=== PATIENT | female | born 2000 | race Caucasian/White ===

== ENCOUNTER 2025-08-26 20:26 | Inpatient (IN) | payer BC, MEDICAID, SELFPAY ==
[2025-08-26 20:28] VITALS: BMI 31.6
--- NOTE | 2025-08-26 20:31 | EKG_ITS ---
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
[2025-08-26 21:09] VITALS: BP 108/75; PULSE 54; RESP 17; TEMP 37.1; O2SAT 100
--- NOTE | 2025-08-26 21:39 | XR_ITS ---
Examination: PA chest single view Technique: Upright PA chest single view Date and time: August 26, 2025 2155 hrs. Indications: Chest pain shortness of breath beginning 10. Findings: Normal heart size. Lungs are clear. The osseous structures are intact. Impression: No active disease.
--- NOTE | 2025-08-26 21:56 | PD.EDCHEST ---
ED Chest Pain RME/HPI General Chief Complaint: Chest Pain Stated Complaint: CHEST THIGHTNESS AND HURTS TO BREATH Time Seen by Provider: 08/26/25 21:33 Arrival date/time: 08/26/25 20:26 25F with history of anxiety presents to ED with 1 month of intermittent episodes of CP and SOB. Patient denies URI symptoms and drug/alcohol use. Limitations: no limitations Related Data Previous Rx's ?Medication ?Instructions ?Recorded levothyroxine 125 mcg tablet 125 mcg PO ACBR 1 month #30 tabs 08/30/25 Allergies Allergy/AdvReac Type Severity Reaction Status Date / Time amoxicillin Allergy Severe RASH Verified 08/26/25 20:27 clavulanic acid Allergy Severe RASH Verified 08/26/25 20:27 Review of Systems Review of Systems Systems Reviewed: All systems reviewed, normal except as documented Cardiovascular Cardiovascular: Reports as per HPI, Reports chest pain and Reports dyspnea Respiratory Respiratory: Reports dyspnea Past Medical History Social History SMOKING STATUS: Never smoker ED Exam General Limitations: Present no limitations General appearance: Present alert, in no apparent distress and anxious Head Head exam: Present atraumatic Neck Neck exam: Present normal inspection, full ROM and trachea midline Chest Chest inspection: Present normal inspection and symmetric chest wall rise Respiratory Respiratory exam: Present normal lung sounds bilaterally Cardiovascular Cardiovascular exam: Present regular rate, bradycardia and normal heart sounds Neurological Exam Neurological exam: Present alert and oriented X3 Psychiatric Psychiatric exam: Present normal affect and anxious Skin Skin exam: Present warm, dry, intact and normal color Course Quality Measures none Orders Category Date Time Status CT Screening NOW Care 08/27/25 04:05 Completed EKG (ED ONLY) *Do not use* NOW Care 08/26/25 20:31 Completed Insert IV NOW Care 08/27/25 00:47 Completed MRI Screening NOW Care 08/27/25 07:05 Completed Consult to Gastroenterology Stat Cons 08/27/25 09:11 Ordered Consult to General Surgery Routine Cons 08/27/25 10:[address] abdomen pelvis w con Stat Exams 08/27/25 04:05 Completed EKG (ED Only) Stat Exams 08/26/25 20:31 Draft MR MRCP Stat Exams 08/27/25 Completed US gall bladder Stat Exams 08/26/25 23:14 Completed US pelvic complete Stat Exams 08/27/25 07:06 Completed XR chest 1V portable Stat Exams 08/26/25 21:39 Completed LYNN IFA Screen w/refl, IFA* Stat Lab 08/27/25 09:25 Received Acetaminophen Stat Lab 08/26/25 22:17 Completed Alcohol, Blood Medical Stat Lab 08/26/25 22:17 Completed Alcohol, Blood Medical Stat Lab 08/27/25 06:15 Completed B-Type Natriuretic Peptide Stat Lab 08/26/25 22:17 Completed Blood Culture (Lab) Stat Lab 08/27/25 09:19 Results CBC Stat Lab 08/26/25 22:17 Completed Comprehensive Metabolic Panel Stat Lab 08/26/25 22:17 Completed Comprehensive Metabolic Panel Stat Lab 08/27/25 01:15 Completed D-Dimer Stat Lab 08/26/25 22:17 Completed Drug Screen,Urine Stat Lab 08/26/25 23:17 Completed Free T3 Stat Lab 08/27/25 06:15 Completed Free T4 (Free Thyroxine) Stat Lab 08/26/25 22:17 Completed HCG Qualitative,Urine Stat Lab 08/26/25 23:17 Completed Hepatitis Acute Panel Stat Lab 08/26/25 22:17 Completed INR [Prothrombin Time with INR] Stat Lab 08/27/25 09:25 Completed Lipase Stat Lab 08/26/25 22:17 Completed Liver Panel Stat Lab 08/27/25 06:15 Completed Lupus Anticoag Eval w Reflex* Stat Lab 08/27/25 09:25 Received Magnesium Stat Lab 08/26/25 22:17 Completed [place] Screen Stat Lab 08/27/25 06:15 Completed Salicylate Stat Lab 08/27/25 06:15 Completed Thyroid Stimulating Hormone Stat Lab 08/26/25 22:17 Completed Troponin I Stat Lab 08/26/25 22:17 Completed Troponin I Stat Lab 08/27/25 01:15 Completed Urinalysis, C/S if Indicated Stat Lab 08/26/25 23:17 Completed Diazepam [Valium] Med 08/26/25 21:39 Discontinued 5 mg PO X1 ONE Levothyroxine Sodium [Synthroid] Med 08/27/25 08:01 Discontinued 25 mcg PO X1 ONE Piper/Tazo Inj [Zosyn Inj] 4.5 gm Med 08/27/25 08:37 Discontinued Sodium Chloride 0.9% (Pop) [NS 0.9% mini bag] 100 ml IV STAT Sodium Chloride 0.9% 1000 ml [Ns] 1,000 ml Med 08/27/25 00:47 Discontinued IV 999 mls/hr Vital Signs Vital signs: Vital Signs Temperature 98.7 F 08/26/25 21:09 Pulse Rate 54 L 08/26/25 21:09 Respiratory Rate 17 08/26/25 21:09 Blood Pressure 108/75 08/26/25 21:09 Pulse Oximetry (%) 100 08/26/25 21:09 Oxygen Delivery Method Room Air 08/26/25 21:09 O2 at 100% on RA and WNLs Chest Pain MDM Narrative MDM Narrative:: 25F with history of anxiety presents to ED with 1 month of intermittent episodes of CP and SOB. Patient denies URI symptoms and drug/alcohol use. Physical exam reveals clear ENT and lungs. No ab tenderness. Patient is afebrile, alert, but anxious. EKG is sinus duc of 53. CXR unremarkable. No leukocytosis. Trop, BNP, and D-dimer normal. CMP remarkable for Cr of 1.4 and moderately elevated LFTs. UA contaminated. Tox and HCG neg. Bili normal. Hep panel neg. Alcohol and tylenol levels normal. Telerad US gallbladder possible mild gallbladder wall thickening, but no stones. Valium improved symptoms. No pain meds given. TSH very high, T4 low. After 1L bolus, Cr reduced to WNLs. However, LFTs increased dramatically. Patient confirmed she did not take any Tylenol. CT telerad possible cholecystitis/pancreatitis. Small FF in pelvis. Patient confirms she's not on her cycle, has no discharge, and is not concerned about STDs. Care signed out to Dr. Adair pending repeat lab draws and dispo. Patient eventually admitted. Patient data External records reviewed:: [facility] previous records Clinical information provided by:: patient Social determinants that could affect healthcare access:: mental health Patient has the following chronic illnesses:: anxiety How is presenting disease/condition affected by chronic disease/condition?: exacerbated by Evaluation data The following diagnostics were reviewed and interpreted by me:: lab results, radiology exam(s) and EKG tracing(s) Lab and/or radiology exams considered but not ordered:: ordered Interpretation Summary: above Medications / Prescriptions Medications or Prescriptions considered but not ordered:: ordered Medication administrations:: Medication Administration History Al Hydrox/Mg Hydrox/Simethicone (Mg Hyd/Al Hyd/Linsey (Maalox Reg) Susp 30 Ml Udc) 30 ml PO Q6H PRN PRN Reason: Indigestion Stop: 09/26/25 10:25 Levothyroxine Sodium 100 mcg/ (Sodium Chloride 5 ml) 0 mcg IV X1 ONE Stop: 08/30/25 20:01 Ibuprofen (Ibuprofen Tab 400 Mg Tablet) 400 mg PO Q6HR PRN PRN Reason: Mild pain 1-6 or Fever>100.4 Stop: 09/27/25 23:08 Last Admin: 08/29/25 20:35 Dose: 400 mg Documented By: Admin: 08/28/25 23:20 Dose: 400 mg Documented By: NOY Levothyroxine Sodium (Levothyroxine Sodium 125 Mcg Tablet) 125 mcg PO ACBR [facility] Stop: 09/26/25 13:29 Last Admin: 08/30/25 05:51 Dose: 125 mcg Documented By: Admin: 08/29/25 05:21 Dose: 125 mcg Documented By: Admin: 08/28/25 05:39 Dose: 125 mcg Documented By: Admin: 08/27/25 13:37 Dose: 125 mcg Documented By: JUDI Ondansetron HCl (Ondansetron Inj 2 Mg/Ml Inj 2 Ml) 4 mg IVP Q6H PRN; Protocol PRN Reason: NAUSEA OR VOMITING Stop: 09/26/25 10:25 Pantoprazole Sodium (Pantoprazole 40 Mg Tablet) 40 mg PO QDAY [facility] Stop: 09/28/25 08:59 Last Admin: 08/30/25 08:09 Dose: 40 mg Documented By: Admin: 08/29/25 10:41 Dose: 40 mg Documented By: JAE Discontinued Medications Acetaminophen (Acetaminophen 325 Mg Tablet) 650 mg PO Q6H PRN PRN Reason: Fever >101.5 Stop: 09/26/25 10:25 Acetaminophen (Acetaminophen Supp 650 Mg Supp) 650 mg PA Q6H PRN; Protocol PRN Reason: Pain 1-3(Mild) or Fever >101.4 Stop: 09/26/25 10:25 Acetaminophen (Acetaminophen 325 Mg Tablet) 650 mg PO Q6HR PRN PRN Reason: pain or fever >100.4 Stop: 09/27/25 23:04 Levothyroxine Sodium 100 mcg/ (Sodium Chloride 5 ml) 0 mcg IV X1 ONE Stop: 08/30/25 15:55 Last Admin: 08/30/25 16:29 Dose: 100 syringe Documented By: TILA Comments: mcg Diazepam (Diazepam 5 Mg Tablet) 5 mg PO X1 ONE Stop: 08/26/25 21:40 Last Admin: 08/26/25 22:04 Dose: 5 mg Documented By: MARLEE Famotidine (Famotidine 20 Mg Tablet) 20 mg PO X1 ONE Stop: 08/28/25 13:20 Last Admin: 08/28/25 14:19 Dose: 20 mg Documented By: Sodium Chloride (Ns) 1,000 mls @ 999 mls/hr IV .Q1H1M ONE Stop: 08/27/25 01:47 Last Infusion: 08/27/25 02:33 Dose: Infused Documented By: Admin: 08/27/25 01:15 Dose: 999 mls/hr Documented By: ANGELIKA Piperacillin Sod/Tazobactam (Sod 4.5 gm/ Sodium Chloride) 100 mls @ 200 mls/hr IV STAT STA; Protocol Stop: 08/27/25 09:06 Last Infusion: 08/27/25 10:06 Dose: Infused Documented By: Admin: 08/27/25 09:12 Dose: 200 mls/hr Documented By: BY Lactated Ringer's (Lactated Ringers) 1,000 mls @ 75 mls/hr IV .[id number] ONE Stop: 08/28/25 01:18 Last Infusion: 08/27/25 13:38 Dose: 75 mls/hr Documented By: Admin: 08/27/25 13:13 Dose: 75 mls/hr Documented By: JUDI Lactated Ringer's (Lactated Ringers) 1,000 mls @ 150 mls/hr IV .Q6H40M ONE Stop: 08/27/25 18:38 Last Admin: 08/27/25 13:39 Dose: 150 mls/hr Documented By: JUDI Lactated Ringer's (Lactated Ringers) 1,000 mls @ 150 mls/hr IV .Q6H40M LUIZ Stop: 08/28/25 04:32 Last Infusion: 08/28/25 02:52 Dose: Infused Documented By: Admin: 08/27/25 20:11 Dose: 150 mls/hr Documented By: Admin: 08/27/25 19:50 Dose: Not Given Documented By: Non-Admin Reason: 1st bag started in ER Lactated Ringer's (Lactated Ringers) 1,000 mls @ 150 mls/hr IV .Q6H40M LUIZ Stop: 09/27/25 02:46 Last Admin: 08/28/25 02:57 Dose: 150 mls/hr Documented By: ME Lactated Ringer's (Lactated Ringers) 1,000 mls @ 100 mls/hr IV .Q10H LUIZ Stop: 09/27/25 08:36 Last Admin: 08/29/25 20:28 Dose: 100 mls/hr Documented By: Infusion: 08/29/25 06:49 Dose: Infused Documented By: Admin: 08/28/25 20:49 Dose: 100 mls/hr Documented By: Infusion: 08/28/25 18:45 Dose: Infused Documented By: Admin: 08/28/25 08:45 Dose: 100 mls/hr Documented By: LT Magnesium Sulfate (Magnesium Sulfate Ivpb) 4 gm in 50 mls @ 12.5 mls/hr IV X1 ONE Stop: 08/29/25 12:07 Last Admin: 08/29/25 10:42 Dose: 12.5 mls/hr Documented By: VD Lactated Ringer's (Lactated Ringers) 1,000 mls @ 125 mls/hr IV .Q8H ONE Stop: 08/29/25 16:39 Last Admin: 08/29/25 08:44 Dose: Not Given Documented By: TD Non-Admin Reason: Discontinued Sterile Water (Sterile Water) Confirm Administered Dose 10 mls @ ud .ROUTE .STK-MED ONE Stop: 08/29/25 14:00 Last Admin: 08/29/25 18:27 Dose: Not Given Documented By: TD Non-Admin Reason: pyxis charge Lactated Ringer's (Lactated Ringers) 1,000 mls @ 500 mls/hr IV .Q2H ONE Stop: 08/30/25 09:43 Last Admin: 08/30/25 08:09 Dose: 500 mls/hr Documented By: LH Ibuprofen (Ibuprofen Tab 400 Mg Tablet) 400 mg PO X1 ONE Stop: 08/28/25 07:53 Last Admin: 08/28/25 08:45 Dose: 400 mg Documented By: LT Levothyroxine Sodium (Levothyroxine Sodium 25 Mcg Tablet) 25 mcg PO X1 ONE Stop: 08/27/25 08:02 Last Admin: 08/27/25 08:39 Dose: 25 mcg Documented By: BY Levothyroxine Sodium (Levothyroxine Sodium 25 Mcg Tablet) 25 mcg PO ACBR LUIZ Stop: 09/27/25 05:59 Morphine Sulfate (Morphine Sulf Inj 4 Mg/Ml Vial) 0.5 mg IVP X1 ONE Stop: 08/27/25 14:17 Last Admin: 08/27/25 14:16 Dose: Not Given Documented By: JUDI Non-Admin Reason: Patient Refused Oxycodone/Acetaminophen (Oxycodone/Apap 5/325 Tablet) 1 tab PO Q6H PRN PRN Reason: PAIN SCALE 4-6 (Moderate Stop: 09/01/25 10:25 above Consultations Consultation(s) initiated? (list below): Yes Diagnosis Chest Pain Differential Diagnosis: fracture of rib, pneumothorax, stable angina, unstable angina pectoris, atypical chest pain, st elevation myocardial infarction, costochondritis, chest pain, biliary colic and other (anxiety, bradycardia, cr elevation, liver enzyme elevation, primary hypothyroidism, acute liver failure) Most likely diagnosis given after review of the tests above:: hypothyroidism, bradycardia, atypical chest pain Admission Indicated Admission indicated?: indicated Admission Request Was there a request for admission?: Yes Admission Attestation Admission request attestation: Discussed case with [] from Hospitalist service regarding admission. Discussed patients ED course, exam findings, labs, and radiology results. The Hospitalist [agrees,declines] to accept the patient for admission. See addendum Disposition Plan Disposition Plan: Admit Discharge Plan Plan Patient Disposition: Admit Acute Care w/in Hospital Problem List Clinical Impression: Hypothyroidism
[2025-08-26] MEDS: DIAZEPAM 5 MG TABLET PO (22:04)
[2025-08-26 22:31] LABS: Basophils # (Auto) 0.0 Thou/mm3 (0.0-0.2); Basophils % (Auto) 1 % (0-2.5); Eosinophils # (Auto) 0.1 Thou/mm3 (0.0-0.5); Eosinophils % (Auto) 1 % (0-10); Hematocrit 31.4 % (36.0-46.0); Hemoglobin 10.7 g/dL (12.0-16.0); Immature Granulocytes Auto 0.03 Thou/mm3 (0.00-0.00); Lymphocytes # (Auto) 1.3 Thou/mm3 (1.0-4.8); Lymphocytes % (Auto) 17 % (10-50); Mean Corpuscular HGB Conc 34.1 g/dl (31.0-37.0); Mean Corpuscular Hemoglobin 31.8 pg (25.0-35.0); Mean Corpuscular Volume 93 fL (80-100); Monocytes # (Auto) 0.3 Thou/mm3 (0.0-0.8); Monocytes % (Auto) 4 % (0-12); Neutrophils # (Auto) 6.2 Thou/mm3 (1.8-7.7); Neutrophils % (Auto) 78 % (37-80); Nucleated Red Blood Cell # 0.00 Thou/mm3 (0.00-0.00); Nucleated Red Blood Cell % 0 /100 WBC (0); Platelet Count 259 Thou/mm3 (140-440); RDW Standard Deviation 43.8 fL (36.4-46.3); Red Blood Count 3.37 Miln/mm3 (4.00-5.20); White Blood Count 8.0 Thou/mm3 (3.6-11.0)
[2025-08-26 22:48] LABS: B-Type Natriuretic Peptide < 20 pg/mL (0-100)
[2025-08-26 22:51] LABS: D-Dimer < 250 ng/mL (<600)
[2025-08-26 22:59] LABS: Alanine Aminotransferase 366 U/L (10-49); Albumin, Serum 4.7 gm/dL (3.5-5.0); Albumin/Globulin Ratio 1.6 (1.2-2.2); Alkaline Phosphatase 74 U/L (46-116); Anion Gap 9 (7-16); Aspartate Amino Transferase 491 U/L (0-34); BUN/Creatinine Ratio 9 Ratio (12-20); Bilirubin,Total 0.8 mg/dL (0.3-1.2); Blood Urea Nitrogen 12 mg/dL (9-23); Calcium 9.5 mg/dL (8.3-10.6); Calcium (Corrected) 9.5 mg/dL (8.5-10.1); Carbon Dioxide 30.1 mMol/L (20.0-31.0); Chloride 102 mMol/L (98-107); Creatinine (Component) 1.4 mg/dL (0.6-1.3); Estimated Creatinine Clearance 66.6 mL/min (>60); Globulin 2.9 gm/dL (2.3-3.5); Glucose 111 mg/dL (74-106); Magnesium 2.2 mg/dL (1.6-2.6); Osmolality,Calculated 281 (275-295); Potassium 4.1 mMol/L (3.4-5.1); Sodium 141 mMol/L (136-145); Total Protein 7.6 gm/dL (5.7-8.2); Troponin I < 0.002 ng/mL (0.0-0.045); eGFR 54 See Note
--- NOTE | 2025-08-26 23:14 | XR_ITS ---
Examination: Abdomen sonogram, Limited Date and time of exam: August 26, 2025, 11:48 PM Indications: Epigastric pain beginning 1900 hrs. Today Technique: Real-time de la cruz scale transabdominal sonographic images of the upper abdomen obtained. Findings: Negative for gallstones Gallbladder wall 0.3 cm Common bile duct 0.3 cm Pancreatic head 3.2 cm Liver 14.2 cm smooth contour no focal liver lesions Normal hepatopedal portal venous flow Patent IVC Impression: Negative for cholelithiasis No gallbladder wall edema Normal common bile
[2025-08-26 23:21] LABS: Collection Type, Urine Clean Catch
[2025-08-26 23:34] LABS: HCG Qualitative,Urine Negative
[2025-08-26 23:38] LABS: Amorphous Crystals,Urine Present (Absent); Bacteria,Urine Rare; Bilirubin,Urine Negative (Negative); Blood,Urine Negative (Negative); Budding Yeast,Urine Present; Color,Urine Yellow (Lt Yel-Yel); Culture Indicated,Urine Contaminated; Glucose, Urine Negative (Negative); Ketones,Urine Negative (Negative); Leukocyte Esterase,Urine Positive (Negative); Nitrite,Urine Negative (Negative); PH,Urine 6.5 (5.0-7.0); Protein,Urine 1+ (Neg - Trace); RBC,Urine 23 /hpf (0-3); Specific Gravity,Urine 1.028 (1.001-1.035); Squamous Epithelial Cell,Urine 22 /hpf (0-5); Urobilinogen,Urine Negative mg/dL (0.0-1.0); WBC,Urine 36 /hpf (0-5)
[2025-08-26 23:39] LABS: Clarity,Urine Turbid (Clear/Hazy)
[2025-08-26 23:45] LABS: Amphetamine/Methamp Scrn,U Negative (Negative); Barbiturate Screen,Urine Negative (Negative); Benzodiazepines Screen,Urine Negative (Negative); Benzoylecgonine Screen, Ur Negative (Negative); Fentanyl Screen,Urine Negative (Negative); Opiate Screen,Urine Negative (Negative); THC Screen,Urine Negative (Negative)
[2025-08-26 23:47] LABS: Thyroid Stimulating Hormone > 150.00 uIU/mL (0.55-4.78)
[2025-08-26 23:54] LABS: Alcohol, Blood Medical < 3.0 mg/dL (0-10.0); Lipase 23 U/L (12-53)
[2025-08-27] VITALS (7 sets, daily range): BP systolic 108–118; BP diastolic 69–81; PULSE 58–82; RESP 16–18; TEMP 36.2–36.9; O2SAT 95–100; BMI 31.6
--- NOTE | 2025-08-27 | XR_ITS ---
MRI abdomen, without contrast. MRCP Date and time of exam: August 27, 2025, 0753 hrs. Indications: Epigastric pain one month Technique: Multiple axial and coronal images of the abdomen have been obtained with the Siemens 1.5T MRI scanner. Images obtained included T1 weighted transverse images, T2-weighted transverse images, T2-weighted transverse images fat-suppressed, T2 weighted haste fat suppressed transverse images, T1 weighted images, in and out of phase images, T2-weighted coronal images, breath hold, T2 weighted haze coronal images as well as T2 weighted coronal thick slab images, MRCP. Findings: No focal liver lesions The gallbladder is contracted with sludge versus small stones There is definite gallbladder wall thickening and edema, the gallbladder is contracted Common hepatic common bile duct 2 mm no stones There is edema surrounding the pancreas, no pancreatic pseudocyst Spleen is not enlarged No hydronephrosis Aorta normal size Impression: Acute cholecystitis Acute pancreatitis, no pseudocyst
[2025-08-27 00:32] LABS: Free T4 (Free Thyroxine) < 0.10 ng/dL (0.89-1.76)
[2025-08-27 00:56] LABS: Acetaminophen < 2.0 mcg/mL (10.0-20.0)
--- NOTE | 2025-08-27 01:07 | PRELIM_ITS ---
Right upper quadrant abdominal ultrasound with Limited Doppler. August 26, 2025 at 2348 hours Clinical history: Elevated LFTs. No prior study is available for comparison. Findings: The liver is normal in echogenicity. No intrahepatic biliary ductal dilatation. The main portal vein is patent and demonstrates hepatopetal flow. There is borderline gallbladder wall thickening, measuring 3.4 mm. No gallbladder calculus or pericholecystic fluid is demonstrated. The common bile duct is normal in caliber at 3 mm. The pancreas is unremarkable to the extent visualized. The inferior vena cava is unremarkable to the extent visualized. The abdominal aorta is not imaged/not demonstrated. Impression: Borderline gallbladder wall thickening without evidence of gallstones or pericholecystic fluid. In the appropriate clinical setting, acute acalculous cholecystitis cannot be excluded. Recommend clinical correlation and follow-up. Report Electronically Signed By: Mauro Seaman 08/27/2025 1:07:31 AM [EST]
[2025-08-27 01:12] LABS: Hepatitis A Antibody IgM Non Reactive (Non React); Hepatitis B Core Antibody IgM Non Reactive (Non React); Hepatitis B Surface Antigen Non Reactive (Non React); Hepatitis C Antibody Non Reactive (Non React)
[2025-08-27] MEDS: SODIUM CHLORIDE 0.9% 1000 ML 1,000 ML 999 ML IV (01:15)
[2025-08-27 01:45] LABS: Troponin I < 0.002 ng/mL (0.0-0.045)
[2025-08-27 03:14] LABS: Albumin, Serum 4.9 gm/dL (3.5-5.0); Albumin/Globulin Ratio 1.6 (1.2-2.2); Anion Gap 9 (7-16); BUN/Creatinine Ratio 12 Ratio (12-20); Bilirubin,Total 0.9 mg/dL (0.3-1.2); Blood Urea Nitrogen 15 mg/dL (9-23); Calcium 9.5 mg/dL (8.3-10.6); Calcium (Corrected) 9.5 mg/dL (8.5-10.1); Carbon Dioxide 28.8 mMol/L (20.0-31.0); Chloride 102 mMol/L (98-107); Creatinine (Component) 1.3 mg/dL (0.6-1.3); Estimated Creatinine Clearance 71.7 mL/min (>60); Globulin 3.0 gm/dL (2.3-3.5); Glucose 116 mg/dL (74-106); Osmolality,Calculated 281 (275-295); Potassium 4.0 mMol/L (3.4-5.1); Sodium 140 mMol/L (136-145); Total Protein 7.9 gm/dL (5.7-8.2); eGFR 59 See Note
[2025-08-27 03:33] LABS: Alkaline Phosphatase 102 U/L (46-116)
[2025-08-27 03:56] LABS: Aspartate Amino Transferase > 1000 U/L (0-34)
[2025-08-27 03:58] LABS: Alanine Aminotransferase 1754 U/L (10-49)
--- NOTE | 2025-08-27 04:05 | XR_ITS ---
Examination: CT abdomen with intravenous contrast CT pelvis with intravenous contrast 2-D coronal reconstructions 2-D sagittal reconstructions Date and time of exam:August 27, 2025, 0425 hrs. Indications: Abdominal pain with elevated liver function tests on laboratory examination today. CTDI: vol (mGy) 8.54 DLP: (mGycm) 514 Technique: Multiple axial sections of the abdomen and pelvis have been obtained. 64 slice high-resolution scanner used. 3 mm axial sections have been obtained, post intravenous injection 60 cc [id number] 2-D sagittal, coronal reconstructions obtained. Low dose protocols were performed. One or more of the following dose reduction techniques were used; automated exposure control, adjustment of the mA and/or KV according to patient size, use of iterative reconstruction technique. Findings: Diffuse fatty infiltration throughout the liver, no focal liver or splenic lesions Gallbladder wall appears thickened and edematous, gallbladder is contracted There is possible minimal edema about the body of the pancreas No renal or ureteral calculi, no hydronephrosis Aorta normal size No pericecal inflammatory change There is moderate free fluid in the pelvis Urinary bladder is partially contracted with wall thickening Osseous structures are intact Impression: Suspicious for acute acalculous cholecystitis as well as mild pancreatitis Consider MRCP follow-up Moderate free fluid in the pelvis, recommend pelvic sonography follow-up
--- NOTE | 2025-08-27 05:34 | PRELIM_ITS ---
CT scan of the abdomen and pelvis with intravenous contrast (axial sections with sagittal and coronal reformats) August 27, 2025 0425 hours Clinical History: Verify high LFTs. Correlated with prior Ultrasound of the August 26, 2025. Findings: The lung bases are clear. The liver, spleen, kidneys and adrenals are unremarkable. Gallbladder wall thickening associated with peripheral edema. No biliary duct dilation. Trace of carlee pancreatic head fat stranding. No evidence of bowel obstruction. No evidence of appendicitis. There is no mesenteric or retroperitoneal adenopathy. The urinary bladder is nondistended, limited relation, questionable thickening of the urinary bladder wall. There is no free air. Small amount of complex free fluid in the pelvis. The uterus and ovaries are within normal limits. The osseous structures are unremarkable. Impression: 1. Probable acute cholecystitis. 2. Possible pancreatitis. 3. Possible cystitis. 4. Small amount of complex free fluid in the pelvis, consider pelvic inflammatory disease in the differential diagnosis. Please, correlate clinically. Report Electronically Signed By: Leobardo Cancino 08/27/2025 5:33:19 AM [EST]
--- NOTE | 2025-08-27 06:30 | PD.EDADDENDU ---
Emergency Room Addendum <Roseanna Newton - Last Filed: 08/27/25 14:43> Addendum Narrative: 0600: Care assumed from SANJUANA Corrales. Past medical, surgical, social and family history reviewed. Vitals and home medications reviewed. I will assume the care of the patient at this time, pending remainder of labs and final disposition. Please refer to the emergency department record for history and examination from initial visit.? Physical exam by me shows patient under no acute distress at this time. Patient without any abdominal pain, no chest pain, no complaints at this time. On my exam patient abdomen soft nondistended nontender, patient without any lower extremity swelling, patient neurovascularly intact. Patient presented because of chest pain, prior provider ordered labs, EKG and chest x-ray initially. Urinalysis negative for nitrates however is positive for leuk esterase has 23 red blood cells 36 white blood cells 22 squames rare bacteria patient without any dysuria possible contamination. Patient is not . Drug screen negative. Labs without any acute hematologic abnormality, patient without any evidence of renal dysfunction however presented with a transaminitis that significantly up trended on serial assessments. AST trended up from the 400s to 4000. ALT trended from 300s to 2800. Alk phos 74 to now 131. T. bili was normal. However direct bilirubin is 0.4. Hepatitis studies negative, Tylenol level normal. Salicylate level is not elevated. Alcohol level is normal. Patient is not . Provider ordered a right upper quadrant ultrasound that was unremarkable. Also ordered CT abdomen pelvis that showed possible acalculous cholecystitis. Patient does not have a leukocytosis. Given the significantly uptrending LFTs, and finding on CT I ordered antibiotics, blood cultures as well as an MRCP. I also ordered autoimmune studies to assess for possible autoimmune hepatitis. Patient TSH did chest today is significantly elevated with an undetectable T4. Provided patient with levothyroxine. This would be a new diagnosis for the patient of hypothyroidism. Consulted on-call cnc mechanic discussed labs, and pending MRCP result. Believes patient may have acute hypoxic hepatitis however recommends that we follow-up on MRCP, admit the patient, less likely choledocholithiasis. MRCP with evidence of acute cholecystitis as well as pancreatitis however lipase is normal. The gallbladder has wall thickening edema sludge versus small stones. There is also edema surrounding the pancreas. Patient already received antibiotics. Pelvic ultrasound with multiple small benign ovarian cysts 26x 26 x 23mm. Consulted carbon sequestration plant operator surgeon Dr. Plascencia. Clinically patient presentation is less likely cholecystitis but will evaluate patient. LFT derrangement is beyond what would be expected for cholecystitis. Consulted TEAM A for admission. Total critical care time: Approximately?60?minutes Due to a high probability of clinically significant, life threatening deterioration, the patient required my highest level of preparedness to intervene emergently and I personally spent this critical care time directly and personally managing the patient. This critical care time included obtaining a history; examining the patient; pulse oximetry; ordering and review of studies; arranging urgent treatment with development of a management plan; evaluation of patient's response to treatment; frequent reassessment; and, discussions with other providers. This critical care time was performed to assess and manage the high probability of imminent, life-threatening deterioration that could result in multi-organ failure. It was exclusive of separately billable procedures and treating other patients and teaching time. Please see MDM section and the rest of the note for further information on patient assessment and treat Diagnoses: Atypical chest pain Bradycardia Primary hypothyroidism <Ria Adair MD - Last Filed: 08/27/25 09:57> Addendum Narrative: 0600: Care assumed from SANJUANA Corrales. Past medical, surgical, social and family history reviewed. Vitals and home medications reviewed. I will assume the care of the patient at this time, pending remainder of labs and final disposition. Please refer to the emergency department record for history and examination from initial visit.? Physical exam by me shows patient under no acute distress at this time. Patient without any abdominal pain, no chest pain, no complaints at this time. On my exam patient abdomen soft nondistended nontender, patient without any lower extremity swelling, patient neurovascularly intact. Patient presented because of chest pain, prior provider ordered labs, EKG and chest x-ray initially. Urinalysis negative for nitrates however is positive for leuk esterase has 23 red blood cells 36 white blood cells 22 squames rare bacteria patient without any dysuria possible contamination. Patient is not . Drug screen negative. Labs without any acute hematologic abnormality, patient without any evidence of renal dysfunction however presented with a transaminitis that significantly up trended on serial assessments. AST trended up from the 400s to 4000. ALT trended from 300s to 2800. Alk phos 74 to now 131. T. bili was normal. However direct bilirubin is 0.4. Hepatitis studies negative, Tylenol level normal. Salicylate level is not elevated. Alcohol level is normal. Patient is not . Provider ordered a right upper quadrant ultrasound that was unremarkable. Also ordered CT abdomen pelvis that showed possible acalculous cholecystitis. Patient does not have a leukocytosis. Given the significantly uptrending LFTs, and finding on CT I ordered antibiotics, blood cultures as well as an MRCP. I also ordered autoimmune studies to assess for possible autoimmune hepatitis. Patient TSH did chest today is significantly elevated with an undetectable T4. Provided patient with levothyroxine. This would be a new diagnosis for the patient of hypothyroidism. Consulted on-call cnc mechanic discussed labs, and pending MRCP result. Believes patient may have acute hypoxic hepatitis however recommends that we follow-up on MRCP, admit the patient, less likely choledocholithiasis. MRCP with evidence of acute cholecystitis as well as pancreatitis however lipase is normal. The gallbladder has wall thickening edema sludge versus small stones. There is also edema surrounding the pancreas. Patient already received antibiotics. Pelvic ultrasound with multiple small benign ovarian cysts 26x 26 x 23mm. Consulted carbon sequestration plant operator surgeon Dr. Plascencia. Clinically patient presentation is less likely cholecystitis but will evaluate patient. LFT derrangement is beyond what would be expected for cholecystitis. Consulted TEAM A for admission. Total critical care time: Approximately?60?minutes Due to a high probability of clinically significant, life threatening deterioration, the patient required my highest level of preparedness to intervene emergently and I personally spent this critical care time directly and personally managing the patient. This critical care time included obtaining a history; examining the patient; pulse oximetry; ordering and review of studies; arranging urgent treatment with development of a management plan; evaluation of patient's response to treatment; frequent reassessment; and, discussions with other providers. This critical care time was performed to assess and manage the high probability of imminent, life-threatening deterioration that could result in multi-organ failure. It was exclusive of separately billable procedures and treating other patients and teaching time. Please see MDM section and the rest of the note for further information on patient assessment and treat Results <Roseanna Newton - Last Filed: 08/27/25 14:43> Objective Laboratory: Laboratory Last Values WBC 8.0 Thou/mm3 (3.6-11.0) 08/26/25 22:17 RBC 3.37 Miln/mm3 (4.00-5.20) L 08/26/25 22:17 Hgb 10.7 g/dL (12.0-16.0) L 08/26/25 22:17 Hct 31.4 % (36.0-46.0) L 08/26/25 22:17 MCV 93 fL (80-100) 08/26/25 22:17 MCH 31.8 pg (25.0-35.0) 08/26/25 22:17 MCHC 34.1 g/dl (31.0-37.0) 08/26/25 22:17 RDW Std Deviation 43.8 fL (36.4-46.3) 08/26/25 22:17 Plt Count 259 Thou/mm3 (140-440) 08/26/25 22:17 Neut % (Auto) 78 % (37-80) 08/26/25 22:17 Lymph % (Auto) 17 % (10-50) 08/26/25 22:17 [place] % (Auto) 4 % (0-12) 08/26/25 22:17 Eos % (Auto) 1 % (0-10) 08/26/25 22:17 Baso % (Auto) 1 % (0-2.5) 08/26/25 22:17 Neut # (Auto) 6.2 Thou/mm3 (1.8-7.7) 08/26/25 22:17 Lymph # (Auto) 1.3 Thou/mm3 (1.0-4.8) 08/26/25 22:17 [place] # (Auto) 0.3 Thou/mm3 (0.0-0.8) 08/26/25 22:17 Eos # (Auto) 0.1 Thou/mm3 (0.0-0.5) 08/26/25 22:17 Baso # (Auto) 0.0 Thou/mm3 (0.0-0.2) 08/26/25 22:17 Immature Gran # (Auto) 0.03 Thou/mm3 (0.00-0.00) H 08/26/25 22:17 Absolute Nucleated RBC 0.00 Thou/mm3 (0.00-0.00) 08/26/25 22:17 Immature Gran % 0 % (0-0) 08/26/25 22:17 Nucleated RBC % 0 /100 WBC (0) 08/26/25 22:17 PT 11.9 Seconds (9.0-12.2) 08/27/25 09:25 INR 1.1 (0.9-1.3) 08/27/25 09:25 D-Dimer < 250 ng/mL (<600) 08/26/25 22:17 Sodium 140 mMol/L (136-145) 08/27/25 01:15 Potassium 4.0 mMol/L (3.4-5.1) 08/27/25 01:15 Chloride 102 mMol/L (98-107) 08/27/25 01:15 Carbon Dioxide 28.8 mMol/L (20.0-31.0) 08/27/25 01:15 Anion Gap 9 (7-16) 08/27/25 01:15 BUN 15 mg/dL (9-23) 08/27/25 01:15 Creatinine 1.3 mg/dL (0.6-1.3) 08/27/25 01:15 Estim Creat Clear Calc 71.7 mL/min (>60) 08/27/25 01:15 eGFR 59 See Note (60-) L 08/27/25 01:15 BUN/Creatinine Ratio 12 Ratio (12-20) 08/27/25 01:15 Glucose 116 mg/dL (74-106) H 08/27/25 01:15 Calculated Osmolality 281 (275-295) 08/27/25 01:15 Calcium 9.5 mg/dL (8.3-10.6) 08/27/25 01:15 Corrected Calcium 9.5 mg/dL (8.5-10.1) 08/27/25 01:15 Magnesium 2.2 mg/dL (1.6-2.6) 08/26/25 22:17 Total Bilirubin 1.0 mg/dL (0.3-1.2) 08/27/25 06:15 Direct Bilirubin 0.4 mg/dL (0.0-0.3) H 08/27/25 06:15 AST 4310 U/L (0-34) H* 08/27/25 06:15 ALT 2816 U/L (10-49) H* 08/27/25 06:15 Alkaline Phosphatase 131 U/L (46-116) H D 08/27/25 06:15 Troponin I < 0.002 ng/mL (0.0-0.045) 08/27/25 01:15 B-Natriuretic Peptide < 20 pg/mL (0-100) 08/26/25 22:17 Total Protein 7.4 gm/dL (5.7-8.2) 08/27/25 06:15 Albumin 4.6 gm/dL (3.5-5.0) 08/27/25 06:15 Globulin 3.0 gm/dL (2.3-3.5) 08/27/25 01:15 Albumin/Globulin Ratio 1.6 (1.2-2.2) 08/27/25 01:15 Lipase 23 U/L (12-53) 08/26/25 22:17 TSH > 150.00 uIU/mL (0.55-4.78) H* 08/26/25 22:17 Free T4 < 0.10 ng/dL (0.89-1.76) L 08/26/25 22:17 Free T3 pg/dL 0.3 pg/mL (2.3-4.2) L 08/27/25 06:15 Ur Collection Type Clean Catch 08/26/25 23:17 Urine Color Yellow (Lt Yel-Yel) 08/26/25 23:17 Urine Clarity Turbid (Clear/Hazy) A 08/26/25 23:17 Urine pH 6.5 (5.0-7.0) 08/26/25 23:17 Ur Specific [place] 1.028 (1.001-1.035) 08/26/25 23:17 Urine Protein 1+ (Neg - Trace) A 08/26/25 23:17 Urine Glucose (UA) Negative (Negative) 08/26/25 23:17 Urine Ketones Negative (Negative) 08/26/25 23:17 Urine Blood Negative (Negative) 08/26/25 23:17 Urine Nitrite Negative (Negative) 08/26/25 23:17 Urine Bilirubin Negative (Negative) 08/26/25 23:17 Urine Urobilinogen (Auto) Negative mg/dL (0.0-1.0) 08/26/25 23:17 Ur Leukocyte Esterase Positive (Negative) 08/26/25 23:17 Urine RBC 23 /hpf (0-3) H 08/26/25 23:17 Urine WBC 36 /hpf (0-5) H 08/26/25 23:17 Ur Squamous Epith Cells 22 /hpf (0-5) H 08/26/25 23:17 Amorphous Crystals Present (Absent) A 08/26/25 23:17 Urine Bacteria Rare (None) 08/26/25 23:17 Urine Yeast (Budding) Present (None) A 08/26/25 23:17 Ur Culture Indicated? Contaminated 08/26/25 23:17 Urine HCG, Qual Negative 08/26/25 23:17 Salicylates < 3.0 mg/dL 08/27/25 06:15 Urine Opiates Screen Negative (Negative) 08/26/25 23:17 Urine Fentanyl Screen Negative (Negative) 08/26/25 23:17 Acetaminophen < 2.0 mcg/mL (10.0-20.0) L 08/26/25 22:17 Ur Barbiturates Screen Negative (Negative) 08/26/25 23:17 U Amphetamin/Meth Scrn Negative (Negative) 08/26/25 23:17 U Benzodiazepines Scrn Negative (Negative) 08/26/25 23:17 U Cocaine Metab Screen Negative (Negative) 08/26/25 23:17 U Marijuana (THC) Screen Negative (Negative) 08/26/25 23:17 Ethyl Alcohol < 3.0 mg/dL (0-10.0) 08/27/25 06:15 Hepatitis A IgM Ab Non Reactive (Non React) 08/26/25 22:17 Hep Bs Antigen Non Reactive (Non React) 08/26/25 22:17 Hep B Core IgM Ab Non Reactive (Non React) 08/26/25 22:17 Hepatitis C Antibody Non Reactive (Non React) 08/26/25 22:17 Imaging: Procedure(s): MR MRCP Accession Number(s): [id number] cc: Rasheed Lopez MD; NO PRIMARY/FAMILY,PHYSICIAN; Ria Adair MD~ MRI abdomen, without contrast. MRCP Date and time of exam: August 27, 2025, 0753 hrs. Indications: Epigastric pain one month Technique: Multiple axial and coronal images of the abdomen have been obtained with the Siemens 1.5T MRI scanner. Images obtained included T1 weighted transverse images, T2-weighted transverse images, T2-weighted transverse images fat-suppressed, T2 weighted haste fat suppressed transverse images, T1 weighted images, in and out of phase images, T2-weighted coronal images, breath hold, T2 weighted haze coronal images as well as T2 weighted coronal thick slab images, MRCP. Findings: No focal liver lesions The gallbladder is contracted with sludge versus small stones There is definite gallbladder wall thickening and edema, the gallbladder is contracted Common hepatic common bile duct 2 mm no stones There is edema surrounding the pancreas, no pancreatic pseudocyst Spleen is not enlarged No hydronephrosis Aorta normal size Impression: Acute cholecystitis Acute pancreatitis, no pseudocyst Dictated By: Rasheed Lopez MD Procedure(s): US pelvic complete Accession Number(s): [id number] cc: Rasheed Lopez MD; NO PRIMARY/FAMILY,PHYSICIAN; Ria Adair MD~ Examination: Pelvic ultrasound, transabdominal, complete Technique: Transabdominal ultrasound of the pelvis performed using grayscale imaging Date and time of exam: August 27, 2025, 0840 hrs. Indications: Free fluid in the pelvis on CT examination this morning 0425 hrs. Findings: Uterus 10.0 cm endometrial stripe 0.3 cm No uterine mass Right ovary 5.8 cm arterial flow, multiple small cysts, the largest 26 x 26 mm Left ovary 2.9 cm arterial flow No fluid in the cul-de-sac Impression: Multiple small benign right ovarian cysts, the largest 26 x 26 x 23 mm No free fluid in the cul-de-sac Dictated By: Rasheed Lopez MD Procedure(s): CT abdomen pelvis w con Accession Number(s): [id number] cc: Rasheed Lopez MD; NO PRIMARY/FAMILY,PHYSICIAN; Jameson Borden PA-C~ Examination: CT abdomen with intravenous contrast CT pelvis with intravenous contrast 2-D coronal reconstructions 2-D sagittal reconstructions Date and time of exam:August 27, 2025, 0425 hrs. Indications: Abdominal pain with elevated liver function tests on laboratory examination today. CTDI: vol (mGy) 8.54 DLP: (mGycm) 514 Technique: Multiple axial sections of the abdomen and pelvis have been obtained. 64 slice high-resolution scanner used. 3 mm axial sections have been obtained, post intravenous injection 60 cc [id number] 2-D sagittal, coronal reconstructions obtained. Low dose protocols were performed. One or more of the following dose reduction techniques were used; automated exposure control, adjustment of the mA and/or KV according to patient size, use of iterative reconstruction technique. Findings: Diffuse fatty infiltration throughout the liver, no focal liver or splenic lesions Gallbladder wall appears thickened and edematous, gallbladder is contracted There is possible minimal edema about the body of the pancreas No renal or ureteral calculi, no hydronephrosis Aorta normal size No pericecal inflammatory change There is moderate free fluid in the pelvis Urinary bladder is partially contracted with wall thickening Osseous structures are intact Impression: Suspicious for acute acalculous cholecystitis as well as mild pancreatitis Consider MRCP follow-up Moderate free fluid in the pelvis, recommend pelvic sonography follow-up Dictated By: Rasheed Lopez MD Procedure(s): US gall bladder Accession Number(s): [id number] cc: Rasheed Lopez MD; NO PRIMARY/FAMILY,PHYSICIAN; Jameson Borden PA-C~ Examination: Abdomen sonogram, Limited Date and time of exam: August 26, 2025, 11:48 PM Indications: Epigastric pain beginning 1900 hrs. Today Technique: Real-time de la cruz scale transabdominal sonographic images of the upper abdomen obtained. Findings: Negative for gallstones Gallbladder wall 0.3 cm Common bile duct 0.3 cm Pancreatic head 3.2 cm Liver 14.2 cm smooth contour no focal liver lesions Normal hepatopedal portal venous flow Patent IVC Impression: Negative for cholelithiasis No gallbladder wall edema Normal common bile Dictated By: Rasheed Lopez MD Procedure(s): XR chest 1V portable Accession Number(s): [id number] cc: Rasheed Lopez MD; NO PRIMARY/FAMILY,PHYSICIAN; Jameson Borden PA-C~ Examination: PA chest single view Technique: Upright PA chest single view Date and time: August 26, 2025 2155 hrs. Indications: Chest pain shortness of breath beginning 10. Findings: Normal heart size. Lungs are clear. The osseous structures are intact. Impression: No active disease. Dictated By: Rasheed Lopez MD <Ria Adair MD - Last Filed: 08/27/25 09:57> Objective Laboratory: Laboratory Last Values WBC 8.0 Thou/mm3 (3.6-11.0) 08/26/25 22:17 RBC 3.37 Miln/mm3 (4.00-5.20) L 08/26/25 22:17 Hgb 10.7 g/dL (12.0-16.0) L 08/26/25 22:17 Hct 31.4 % (36.0-46.0) L 08/26/25 22:17 MCV 93 fL (80-100) 08/26/25 22:17 MCH 31.8 pg (25.0-35.0) 08/26/25 22:17 MCHC 34.1 g/dl (31.0-37.0) 08/26/25 22:17 RDW Std Deviation 43.8 fL (36.4-46.3) 08/26/25 22:17 Plt Count 259 Thou/mm3 (140-440) 08/26/25 22:17 Neut % (Auto) 78 % (37-80) 08/26/25 22:17 Lymph % (Auto) 17 % (10-50) 08/26/25 22:17 [place] % (Auto) 4 % (0-12) 08/26/25 22:17 Eos % (Auto) 1 % (0-10) 08/26/25 22:17 Baso % (Auto) 1 % (0-2.5) 08/26/25 22:17 Neut # (Auto) 6.2 Thou/mm3 (1.8-7.7) 08/26/25 22:17 Lymph # (Auto) 1.3 Thou/mm3 (1.0-4.8) 08/26/25 22:17 [place] # (Auto) 0.3 Thou/mm3 (0.0-0.8) 08/26/25 22:17 Eos # (Auto) 0.1 Thou/mm3 (0.0-0.5) 08/26/25 22:17 Baso # (Auto) 0.0 Thou/mm3 (0.0-0.2) 08/26/25 22:17 Immature Gran # (Auto) 0.03 Thou/mm3 (0.00-0.00) H 08/26/25 22:17 Absolute Nucleated RBC 0.00 Thou/mm3 (0.00-0.00) 08/26/25 22:17 Immature Gran % 0 % (0-0) 08/26/25 22:17 Nucleated RBC % 0 /100 WBC (0) 08/26/25 22:17 PT 11.9 Seconds (9.0-12.2) 08/27/25 09:25 INR 1.1 (0.9-1.3) 08/27/25 09:25 D-Dimer < 250 ng/mL (<600) 08/26/25 22:17 Sodium 140 mMol/L (136-145) 08/27/25 01:15 Potassium 4.0 mMol/L (3.4-5.1) 08/27/25 01:15 Chloride 102 mMol/L (98-107) 08/27/25 01:15 Carbon Dioxide 28.8 mMol/L (20.0-31.0) 08/27/25 01:15 Anion Gap 9 (7-16) 08/27/25 01:15 BUN 15 mg/dL (9-23) 08/27/25 01:15 Creatinine 1.3 mg/dL (0.6-1.3) 08/27/25 01:15 Estim Creat Clear Calc 71.7 mL/min (>60) 08/27/25 01:15 eGFR 59 See Note (60-) L 08/27/25 01:15 BUN/Creatinine Ratio 12 Ratio (12-20) 08/27/25 01:15 Glucose 116 mg/dL (74-106) H 08/27/25 01:15 Calculated Osmolality 281 (275-295) 08/27/25 01:15 Calcium 9.5 mg/dL (8.3-10.6) 08/27/25 01:15 Corrected Calcium 9.5 mg/dL (8.5-10.1) 08/27/25 01:15 Magnesium 2.2 mg/dL (1.6-2.6) 08/26/25 22:17 Total Bilirubin 1.0 mg/dL (0.3-1.2) 08/27/25 06:15 Direct Bilirubin 0.4 mg/dL (0.0-0.3) H 08/27/25 06:15 AST 4310 U/L (0-34) H* 08/27/25 06:15 ALT 2816 U/L (10-49) H* 08/27/25 06:15 Alkaline Phosphatase 131 U/L (46-116) H D 08/27/25 06:15 Troponin I < 0.002 ng/mL (0.0-0.045) 08/27/25 01:15 B-Natriuretic Peptide < 20 pg/mL (0-100) 08/26/25 22:17 Total Protein 7.4 gm/dL (5.7-8.2) 08/27/25 06:15 Albumin 4.6 gm/dL (3.5-5.0) 08/27/25 06:15 Globulin 3.0 gm/dL (2.3-3.5) 08/27/25 01:15 Albumin/Globulin Ratio 1.6 (1.2-2.2) 08/27/25 01:15 Lipase 23 U/L (12-53) 08/26/25 22:17 TSH > 150.00 uIU/mL (0.55-4.78) H* 08/26/25 22:17 Free T4 < 0.10 ng/dL (0.89-1.76) L 08/26/25 22:17 Free T3 pg/dL 0.3 pg/mL (2.3-4.2) L 08/27/25 06:15 Ur Collection Type Clean Catch 08/26/25 23:17 Urine Color Yellow (Lt Yel-Yel) 08/26/25 23:17 Urine Clarity Turbid (Clear/Hazy) A 08/26/25 23:17 Urine pH 6.5 (5.0-7.0) 08/26/25 23:17 Ur Specific [place] 1.028 (1.001-1.035) 08/26/25 23:17 Urine Protein 1+ (Neg - Trace) A 08/26/25 23:17 Urine Glucose (UA) Negative (Negative) 08/26/25 23:17 Urine Ketones Negative (Negative) 08/26/25 23:17 Urine Blood Negative (Negative) 08/26/25 23:17 Urine Nitrite Negative (Negative) 08/26/25 23:17 Urine Bilirubin Negative (Negative) 08/26/25 23:17 Urine Urobilinogen (Auto) Negative mg/dL (0.0-1.0) 08/26/25 23:17 Ur Leukocyte Esterase Positive (Negative) 08/26/25 23:17 Urine RBC 23 /hpf (0-3) H 08/26/25 23:17 Urine WBC 36 /hpf (0-5) H 08/26/25 23:17 Ur Squamous Epith Cells 22 /hpf (0-5) H 08/26/25 23:17 Amorphous Crystals Present (Absent) A 08/26/25 23:17 Urine Bacteria Rare (None) 08/26/25 23:17 Urine Yeast (Budding) Present (None) A 08/26/25 23:17 Ur Culture Indicated? Contaminated 08/26/25 23:17 Urine HCG, Qual Negative 08/26/25 23:17 Salicylates < 3.0 mg/dL 08/27/25 06:15 Urine Opiates Screen Negative (Negative) 08/26/25 23:17 Urine Fentanyl Screen Negative (Negative) 08/26/25 23:17 Acetaminophen < 2.0 mcg/mL (10.0-20.0) L 08/26/25 22:17 Ur Barbiturates Screen Negative (Negative) 08/26/25 23:17 U Amphetamin/Meth Scrn Negative (Negative) 08/26/25 23:17 U Benzodiazepines Scrn Negative (Negative) 08/26/25 23:17 U Cocaine Metab Screen Negative (Negative) 08/26/25 23:17 U Marijuana (THC) Screen Negative (Negative) 08/26/25 23:17 Ethyl Alcohol < 3.0 mg/dL (0-10.0) 08/27/25 06:15 Hepatitis A IgM Ab Non Reactive (Non React) 08/26/25 22:17 Hep Bs Antigen Non Reactive (Non React) 08/26/25 22:17 Hep B Core IgM Ab Non Reactive (Non React) 08/26/25 22:17 Hepatitis C Antibody Non Reactive (Non React) 08/26/25 22:17
--- NOTE | 2025-08-27 07:06 | XR_ITS ---
Examination: Pelvic ultrasound, transabdominal, complete Technique: Transabdominal ultrasound of the pelvis performed using grayscale imaging Date and time of exam: August 27, 2025, 0840 hrs. Indications: Free fluid in the pelvis on CT examination this morning 0425 hrs. Findings: Uterus 10.0 cm endometrial stripe 0.3 cm No uterine mass Right ovary 5.8 cm arterial flow, multiple small cysts, the largest 26 x 26 mm Left ovary 2.9 cm arterial flow No fluid in the cul-de-sac Impression: Multiple small benign right ovarian cysts, the largest 26 x 26 x 23 mm No free fluid in the cul-de-sac
[2025-08-27 07:35] LABS: Alanine Aminotransferase 2816 U/L (10-49); Albumin, Serum 4.6 gm/dL (3.5-5.0); Alkaline Phosphatase 131 U/L (46-116); Bilirubin,Direct 0.4 mg/dL (0.0-0.3); Bilirubin,Total 1.0 mg/dL (0.3-1.2); Free T3 0.3 pg/mL (2.3-4.2); Total Protein 7.4 gm/dL (5.7-8.2)
[2025-08-27 08:18] LABS: Aspartate Amino Transferase 4310 U/L (0-34)
[2025-08-27 08:36] LABS: Alcohol, Blood Medical < 3.0 mg/dL (0-10.0); Salicylate < 3.0 mg/dL
[2025-08-27] MEDS: LEVOTHYROXINE SODIUM 25 MCG TABLET PO (08:39)
[2025-08-27] MEDS: PIPER/TAZO INJ 4.5 GM in SODIUM CHLORIDE 0.9% (POP) 100 ML IV (09:12)
[2025-08-27 09:46] LABS: INR 1.1 (0.9-1.3); Prothrombin Time 11.9 Seconds (9.0-12.2)
--- NOTE | 2025-08-27 11:53 | ESHP_ITS ---
<Statement entered by Sharla Fraire MD - 08/27/25 12:28> 25-year-old female with a past medical history significant for anxiety presents to the ED with a chief complaint of chest pain. The patient initially believed this episode was related to anxiety, similar to previous occurrences. She was administered diazepam in the ED, which resulted in symptom resolution. However, laboratory workup revealed severe hepatic injury, with LFTs elevated above 1000. Thyroid function tests were also markedly abnormal, with a TSH level >150 and suppressed T3 and T4 levels, consistent with severe hypothyroidism. The patient denies any history of autoimmune disease, alcohol use, acetaminophen ingestion, or recent use of any hepatotoxic medications. The only substance she reports taking is an iddz-wyw-rnyekfj supplement, possibly related to uric acid support (e.g., GAYE or a similar compound), which is unlikely to cause liver injury. She also denies using any herbal teas, weight loss supplements, or other OTC medications. Clinically, the patient reports low energy, weight gain, fatigue, and depressive symptoms over recent weeks?likely related to hypothyroidism. Imaging and Additional Workup: CT Abdomen: Concerning for possible cholecystitis. MRCP: No evidence of biliary obstruction or cholangitis. Liver Ultrasound: No structural abnormalities or biliary dilation noted. Consults: GI (ED): Suspect anoxic or autoimmune acute liver injury. Surgery: Evaluated the patient and reviewed the chart. No surgical intervention indicated at this time. Patient was admitted for further management Our Primary concern is acute liver injury, potentially due to: Toxin-related etiology (despite no clear source) Autoimmune hepatitis Primary biliary cholangitis Viral hepatitis (although current serologies are negative) Plan: Symptomatic management Maintain IV fluids (patient mildly dehydrated with evidence of PRINCE) Repeat renal panel Trend LFTs Order CPK to rule out rhabdomyolysis Send autoimmune hepatitis panel (LYNN, ASMA, anti-LKM, etc.) Continue to monitor thyroid dysfunction; consider starting thyroid hormone replacement after further evaluation Repeat TSH, T3, T4 as appropriate Consider hepatology f/u outpationt if clinical picture does not improve or if autoimmune markers return positive Patient care was discussed with attending physician Dr. Rudy Fraire MD PGY-3 I have carefully reviewed this document. Due to imperfections in the voice software, there could be grammatical errors including phonetic/typographic errors. This in no way compromises the medical care the patient is receiving Documentation for date of: 08/27/25 [facility] History of Present Illness History of present illness: History of Present Illness: 25-year-old female with past medical history of hypothyroidism, presented to the hospital on 08/26/2025 due to epigastric pain that began last night at approximately 7pm. The pain was intermittent, sharp and non-radiating in nature. The intensity of the pain ranged from 5-10/10. During the episodes, the patient reported associated symptoms of tachypnea and chills. At the time of examination, Patient noted she feels slightly depressed, fatigued, and lack of energy. Patient's chest pain resolved after she received diazepam 5mg PO x1 at ED. Denies chest pain, palpation, SOB, abdominal pain, N/V, fevers or chills. Patient has been admitted for management of acute liver injury ED course: -Vitals: BP 108/75, NJ 54, RR 17,Temp 98.7 F, 100% O2 sat on room air -Labs: WBC 8.0, Hgb 10.7, HCT 31.4, sodium 141, potassium 4.1, BUN 12, creatinine 1.4, eGFR 54, AST 491, ALT 366, ALP 74, troponin< 0.002, BNP <20, T SH>150, free T4<0.10. -After 8 hours, Repeat AST: 4310, ALT: 2816, ALP:131 -UA (08/26/2025): Turbid, yellow urine, urine pH 6.5, urine protein 1+, urine blood negative, urine glucose negative, urine RBC 23, urine WBC 36, urine nitrate negative, urine bacteria rare, urine yeast present, urine hCG negative, urine leukocyte esterase positive. -EKG (08/27/2025): Sinus Bradycardia with low QRS voltage in precordial leads. -CXR (08/27/2025):Normal heart size, Lungs are clear, The osseous structures are intact. -GallBladder US (08/27/2025): Negative for cholelithiasis, No gallbladder wall edema, Normal common bile -MRCP (08/27/2025): Acute cholecystitis, Acute pancreatitis, no pseudocyst -CT A/P (08/27/2025): Suspicious for acute acalculous cholecystitis as well as mild pancreatitis, Moderate free fluid in the pelvis -Pelvic US (08/27/2025): Multiple small benign right ovarian cysts, the largest 26 x 26 x 23 mm, No free fluid in the cul-de-sac In the ED, patient was given Diazepam 5mg PO x1, Levothyroxine 25mcg PO x1, Zoysn 4.5 g IV Medical history: Hypothyroidism during 4 yrs ago Surgical history: Denies Allergies: Augmentin causing Rash Medications: Denies Family history: Noncontributory Social history: Denies smoking cigarettes, drinking alcohol or using other illicit drugs Review of Systems Review of Systems Narrative Review of Systems: All 12 systems assessed and the patient denies unless otherwise stated in HPI Exam Vital Signs Temp Pulse Resp BP Pulse Ox O2 Del Method 97.4 F 65 18 111/69 99 Room Air 08/27/25 07:22 08/27/25 11:19 08/27/25 11:19 08/27/25 11:19 08/27/25 11:19 08/27/25 11:19 Narrative Exam General: No acute distress, well nourished, AAO x3 Eye: PERRL, EOMI, normal conjunctiva, no scleral icterus HENT: Normocephalic, atraumatic, hearing intact to conversation at normal volume, moist oral mucosa Neck: Supple, non-tender, no JVD, no lymphadenopathy Lungs: Non-labored respirations, symmetric chest rise, Clear to auscultate bilaterally, No wheezing, rhonchi, crackles Heart: Peripheral pulses intact bilaterally, Regular Rate and Rhythm. Abdomen: Soft, non-tender, non-distended, no palpable masses Musculoskeletal: Normal range of motion and strength, No cyanosis or edema, No visible joint swelling Skin: Skin is warm, dry, no rashes or lesions. Psychiatric: Cooperative, appropriate mood and affect, Awake and alert, not agitated Neuro: Cranial nerves II-XII grossly intact. Strength 5/5 throughout. Sensations intact to light touch. Results: Labs 08/28/25 04:25 08/28/25 04:25 Labs: Short CBC 08/26/25 Range/Units 22:17 WBC 8.0 (3.6-11.0) Thou/mm3 Hgb 10.7 L (12.0-16.0) g/dL Hct 31.4 L (36.0-46.0) % Plt Count 259 (140-440) Thou/mm3 BMP 08/26/25 08/27/25 22:17 01:15 Sodium 141 140 Potassium 4.1 4.0 Chloride 102 102 Carbon Dioxide 30.1 28.8 BUN 12 15 Creatinine 1.4 H 1.3 Glucose 111 H 116 H Calcium 9.5 9.5 Cardiac Enzymes 08/26/25 08/27/25 Range/Units 22:17 01:15 Troponin I < 0.002 < 0.002 (0.0-0.045) ng/mL Liver Function 08/26/25 08/27/25 08/27/25 Range/Units 22:17 01:15 06:15 Total Bilirubin 0.8 0.9 1.0 (0.3-1.2) mg/dL Direct Bilirubin 0.4 H (0.0-0.3) mg/dL AST 491 H > 1000 H* 4310 H* (0-34) U/L ALT 366 H 1754 H* 2816 H* (10-49) U/L Alkaline Phosphatase 74 102 D 131 H D (46-116) U/L Albumin 4.7 4.9 4.6 (3.5-5.0) gm/dL Urine 08/26/25 Range/Units 23:17 Urine Color Yellow (Lt Yel-Yel) Urine Clarity Turbid A (Clear/Hazy) Urine pH 6.5 (5.0-7.0) Ur Specific [place] 1.028 (1.001-1.035) Urine Protein 1+ A (Neg - Trace) Urine Glucose (UA) Negative (Negative) Quality Measures Quality Measures none Medications Home Medications and Allergies Home Medications ?Medication ?Instructions ?Recorded ?Confirmed ?Type No Known Home Medications 08/27/2503/18 History Allergies Allergy/AdvReac Type Severity Reaction Status Date / Time amoxicillin Allergy Severe RASH Verified 08/26/25 20:27 clavulanic acid Allergy Severe RASH Verified 08/26/25 20:27 Visit Medications Acetaminophen (Acetaminophen 325 Mg Tablet) 650 mg PO Q6H PRN PRN Reason: Fever >101.5 Stop: 09/26/25 10:25 Al Hydrox/Mg Hydrox/Simethicone (Mg Hyd/Al Hyd/Linsey (Maalox Reg) Susp 30 Ml Udc) 30 ml PO Q6H PRN PRN Reason: Indigestion Stop: 09/26/25 10:25 Ondansetron HCl (Ondansetron Inj 2 Mg/Ml Inj 2 Ml) 4 mg IVP Q6H PRN; Protocol PRN Reason: NAUSEA OR VOMITING Stop: 09/26/25 10:25 Discontinued Medications Acetaminophen (Acetaminophen Supp 650 Mg Supp) 650 mg NJ Q6H PRN; Protocol PRN Reason: Pain 1-3(Mild) or Fever >101.4 Stop: 09/26/25 10:25 Diazepam (Diazepam 5 Mg Tablet) 5 mg PO X1 ONE Stop: 08/26/25 21:40 Last Admin: 08/26/25 22:04 Dose: 5 mg Sodium Chloride (Ns) 1,000 mls @ 999 mls/hr IV .Q1H1M ONE Stop: 08/27/25 01:47 Last Infusion: 08/27/25 02:33 Dose: Infused Piperacillin Sod/Tazobactam (Sod 4.5 gm/ Sodium Chloride) 100 mls @ 200 mls/hr IV STAT STA; Protocol Stop: 08/27/25 09:06 Last Infusion: 08/27/25 10:06 Dose: Infused Levothyroxine Sodium (Levothyroxine Sodium 25 Mcg Tablet) 25 mcg PO X1 ONE Stop: 08/27/25 08:02 Last Admin: 08/27/25 08:39 Dose: 25 mcg Oxycodone/Acetaminophen (Oxycodone/Apap 5/325 Tablet) 1 tab PO Q6H PRN PRN Reason: PAIN SCALE 4-6 (Moderate Stop: 09/01/25 10:25 Assessment & Plan Plan 25-year-old female with past medical history of hypothyroidism, presented to the hospital on 08/26/2025 due to epigastric pain that began last night at approximately 7pm. Patient has been admitted for management of acute liver injury #Hypothyroidism-induced Rhabdomyolysis #with Secondary transaminitis #Hypothyrodism -Ddx includes Autoimmune hepatitis, Primary biliary cholangitis, Viral hepatitis -Sharp intermittent epigastric pain that has been resolved. Denies muscular pain, acute muscle weakness, or swelling, or brown/tea-colored urine. -No recent surgery, burn, electricity contact, physical restraint, unlikely traumatic rhabdomyolysis -No recent prolonged exercise, seizures or psychotic agitation, No medical history of myopathies, alcoholism, drugs (ex. Statins, illicit substances), recent infections, or alcoholism -Labs: WBC 8.0, Hgb 10.7, HCT 31.4, sodium 141, potassium 4.1, BUN 12, creatinine 1.4, eGFR 54, AST 491, ALT 366, ALP 74, troponin< 0.002, BNP <20, T SH>150, free T4<0.10. -After 8 hours, Repeat AST: 4310, ALT: 2816, ALP:131 -UA (08/26/2025): Turbid, yellow urine, urine pH 6.5, urine protein 1+, urine blood negative, urine glucose negative, urine RBC 23, urine WBC 36, urine nitrate negative, urine bacteria rare, urine yeast present, urine hCG negative, urine leukocyte esterase positive. -CK: 2308 Plan: -Patient at risk for electrolyte abnormalities, requires aggressive IV hydration -Continue to monitor serum CK and electrolyte levels. CK likely to peak within next 3 days. -Started IVF LR IV 150ml/hr -Started on Levothyroxine 125 mcg PO qd -If pt volume overloaded, consider diuresis -Pending TSI, TPO antibodies, Thyroglobulin abs, ANCA Scrn, MPO&PR3, Mitochondrial ab -Strict I and Os #PRINCE, Intrinsic #ATN -Upon admission, BUN 12 , Cr 1.4 (Baseline unknown), eGFR 54 , BUN/Cr:9 (<15) -Likely ATN, seconday to rhabdomyolysis. -Patient appear to be euvolemic on exam, no edema, lungs clear, mucus membranes dry. Plan: -Started 1 L IV LR 150ml/hr maintenance fluid -Avoid nephrotoxins -Renally dose medication #Cholecysitis R/O -Non-radiating epigastric pain that has completely resolved after Diazepam 5mg PO x1 -GallBladder US (08/27/2025): Negative for cholelithiasis, No gallbladder wall edema, Normal common bile -MRCP (08/27/2025): Acute cholecystitis, Acute pancreatitis, no pseudocyst -CT A/P (08/27/2025): Suspicious for acute acalculous cholecystitis as well as mild pancreatitis, Moderate free fluid in the pelvis Plan: -HIDA scan pending. -CTM electrolytes -Daily CBC, CMP #Multiple small benign right ovarian Cysts -Pelvic US (08/27/2025): Multiple small benign right ovarian cysts, the largest 26 x 26 x 23 mm, No free fluid in the cul-de-sac Plan: -Patient needs to follow up outpatient. Disposition: Med surg Diet: Regular GI prophylaxis: Maalox DVT prophylaxis: SCD Code: FULL Assessment and plan discussed with my attending physician Dr. Grant and Dr. Fraire (PGY-3) Dr. Murray (PGY-1) - Internal medicine resident Attending Provider Attestation/Addendum I attest that I was physically present for the evaluation, physical examination, lab and imaging review of the patient with the residents. I discussed the case with the residents and agree with the findings and plans of care as documented above. After examination of the patient and review of the clinical data I feel that this patient needs admission to the hospital for further treatment/evaluation. Patient is a 25 years old female with past medical history of anxiety, hypothyroidism during her who presented to the ED with complaint of chest pain. Patient had similar episode of chest pain about a month ago which resolved on its own. Her pain resolved after receiving diazepam IV in the ED. At the time of exam, patient denied any symptoms and stated that she felt well. Patient does not drink alcohol, does not use any regular medicines except for [id number] supplement. Patient does say yes to weight gain, fatigue, excessive feeling of cold. She had used levothyroxine for short time while she was . But had not had follow-up TSH level, she also has not seen a physician after . Patient and her also has been trying to conceive which has been unsuccessful and are planning to visit her flame burner. She denied vigorous exercises, muscle pain or trauma. In the ED, Vitals are within normal limits, lab results show mild anemia with hemoglobin of 10.7, creatinine of 1.4 with GFR 54, she had AST/ALT of 491/366 on presentation, which increased to 4310/2816 this morning. Her TSH level is more than 150 with T4 less than 0.1 and T3 0.3. Patient received 1 L of normal saline bolus, levothyroxine 25 mcg and a dose of Zosyn in the ED.We will admit the patient for management of acute liver injury likely secondary to rhabdomyolysis, likely hypothyroidism induced myopathy, PRINCE. Patient underwent multiple imaging including MRCP, which was suspicious for acute cholecystitis, we will obtain general surgery consult, patient does not have right upper quadrant pain, nausea or vomiting, bilirubin is stable. CT abdomen is also concerning for acute pancreatitis, lower suspicion as well since the abdominal pain resolved after IV diazepam in the ED and lipase level is within normla limits. Tyrese Grant MD
[2025-08-27 12:05] LABS: Basophils # (Auto) 0.0 Thou/mm3 (0.0-0.2); Basophils % (Auto) 1 % (0-2.5); Eosinophils # (Auto) 0.0 Thou/mm3 (0.0-0.5); Eosinophils % (Auto) 1 % (0-10); Hematocrit 33.9 % (36.0-46.0); Hemoglobin 11.3 g/dL (12.0-16.0); Immature Granulocytes Auto 0.01 Thou/mm3 (0.00-0.00); Lymphocytes # (Auto) 1.0 Thou/mm3 (1.0-4.8); Lymphocytes % (Auto) 26 % (10-50); Mean Corpuscular HGB Conc 33.3 g/dl (31.0-37.0); Mean Corpuscular Hemoglobin 31.0 pg (25.0-35.0); Mean Corpuscular Volume 93 fL (80-100); Monocytes # (Auto) 0.5 Thou/mm3 (0.0-0.8); Monocytes % (Auto) 12 % (0-12); Neutrophils # (Auto) 2.2 Thou/mm3 (1.8-7.7); Neutrophils % (Auto) 60 % (37-80); Nucleated Red Blood Cell # 0.00 Thou/mm3 (0.00-0.00); Nucleated Red Blood Cell % 0 /100 WBC (0); Platelet Count 279 Thou/mm3 (140-440); RDW Standard Deviation 43.9 fL (36.4-46.3); Red Blood Count 3.65 Miln/mm3 (4.00-5.20); White Blood Count 3.7 Thou/mm3 (3.6-11.0)
[2025-08-27 12:36] LABS: Creatine Kinase 2308 U/L (34-171)
[2025-08-27] MEDS: RINGERS LACTATED 1000 ML 1,000 ML 75 ML IV (13:13)
--- NOTE | 2025-08-27 13:28 | PC.NURSE ---
Spoke with Dr. Fraire regarding patient's diet. The patient currently doesn't have a diet order. Doctor said she'll look over the patient's chart and put in an order.
[2025-08-27] MEDS: LEVOTHYROXINE SODIUM 125 MCG TABLET PO (13:37)
[2025-08-27] MEDS: RINGERS LACTATED 1000 ML 1,000 ML 150 ML IV ×2 (13:39→20:11)
--- NOTE | 2025-08-27 14:15 | PC.NURSE ---
Spoke with Dr. Fraire at 1416 regarding patient's pain. Patient currently has no pain medication available but Tylenol for fever and dr doesn't want that given to patient d/t her high liver panel lab readings. Dr. Fraire is going to put in an order for morphine to help with pain.
[2025-08-27 14:26] LABS: Mono Screen Negative (Negative)
--- NOTE | 2025-08-27 19:40 | PD.IMCONS ---
HPI Data of Consult Requesting Physician: Tyrese Grant MD Primary Care Provider: Physician No Primary/Family Consult Narrative Reason for consult: Abnormal LFTs History of present illness: 25 years old female I been touch for this patient with the ER physician Dr. Adair since morning She presented with symptoms of atypical chest pain which she relates to her anxiety was given diazepam and symptoms got better however the laboratory data showed AST ALT greater than 1000 Repeat LFTs Trending upwards with a total bilirubin 0.4 AST ALT 4310 and 2816 and alk phos of 131 Gallbladder ultrasound was negative for any cholelithiasis MRCP showed edema around the pancreas and thickened gallbladder wall CT scan of the abdomen pelvis basically negative Patient was subsequently admitted after MRCP showed no choledocholithiasis Patient does not drink any alcohol cc:: cc: Tyrese Grant MD Review of Systems Review of Systems Systems Reviewed: All systems reviewed, normal except as documented Past Medical History Surgical History OTHER SURGICAL HX: As in the history of present illness Meds Home Medications and Allergies Home Medications ?Medication ?Instructions ?Recorded ?Confirmed ?Type No Known Home Medications 08/27/25 08/27/25 History Allergies Allergy/AdvReac Type Severity Reaction Status Date / Time amoxicillin Allergy Severe RASH Verified 08/26/25 20:27 clavulanic acid Allergy Severe RASH Verified 08/26/25 20:27 Exam Vital Signs Temp Pulse Resp BP Pulse Ox O2 Del Method 97.4 F 82 16 109/75 99 Room Air 08/27/25 15:50 08/27/25 15:50 08/27/25 15:50 08/27/25 15:50 08/27/25 15:50 08/27/25 15:50 Constitutional Comments: Alert oriented Routine Respiratory Exam Comments: Normal to auscultation Routine Abdominal Exam Comments: Midepigastric tenderness Results Labs 08/27/25 09:19 08/27/25 01:15 Labs: Short CBC 08/26/25 08/27/25 Range/Units 22:17 09:19 WBC 8.0 3.7 D (3.6-11.0) Thou/mm3 Hgb 10.7 L 11.3 L (12.0-16.0) g/dL Hct 31.4 L 33.9 L (36.0-46.0) % Plt Count 259 279 (140-440) Thou/mm3 BMP 08/26/25 08/27/25 22:17 01:15 Sodium 141 140 Potassium 4.1 4.0 Chloride 102 102 Carbon Dioxide 30.1 28.8 BUN 12 15 Creatinine 1.4 H 1.3 Glucose 111 H 116 H Calcium 9.5 9.5 Cardiac Enzymes 08/26/25 08/27/25 08/27/25 Range/Units 22:17 01:15 09:25 Total Creatine Kinase 2308 H (34-171) U/L Troponin I < 0.002 < 0.002 (0.0-0.045) ng/mL Liver Function 08/26/25 08/27/25 08/27/25 Range/Units 22:17 01:15 06:15 Total Bilirubin 0.8 0.9 1.0 (0.3-1.2) mg/dL Direct Bilirubin 0.4 H (0.0-0.3) mg/dL AST 491 H > 1000 H* 4310 H* (0-34) U/L ALT 366 H 1754 H* 2816 H* (10-49) U/L Alkaline Phosphatase 74 102 D 131 H D (46-116) U/L Albumin 4.7 4.9 4.6 (3.5-5.0) gm/dL Urine 08/26/25 Range/Units 23:17 Urine Color Yellow (Lt Yel-Yel) Urine Clarity Turbid A (Clear/Hazy) Urine pH 6.5 (5.0-7.0) Ur Specific [place] 1.028 (1.001-1.035) Urine Protein 1+ A (Neg - Trace) Urine Glucose (UA) Negative (Negative) Assessment and Plan Additional Assessment & Plan Additional Plan: # Primarily transaminitis in the setting of elevated CPK and TSH greater than 150 Hypothyroidism itself can cause transaminase elevation and she is significantly hypothyroid And the picture is complicated by CPK elevation suggestive of rhabdomyolysis that it self can also cause particularly AST elevation and not so much ALT elevation because ALT is liver specific Other differential diagnosis considered would be acute hypoxic hepatitis Her clinical picture is complicated by edema surrounding the pancreas and she has been asymptomatic as well as the severity of the abdominal pain is concerned although she did have atypical chest pain Suggestions Trend the LFTs I see the dosing of levothyroxine and only 125 mcg daily will recommend at least going up to 200 mcg a day Once the hypothyroidism improves AST ALT will start improving IV hydration for the elevated CK Will order complete workup for the liver disease to rule out any evidence of chronic active diabetes which I do suspect she has Very interesting case and I will follow the patient with you Thank you once again for the opportunity to participate in the care of this patient
[2025-08-28] VITALS: BP 103/61; PULSE 67; RESP 16; TEMP 36.9; O2SAT 94
--- NOTE | 2025-08-28 00:14 | ESCONSULT_ITS ---
RE: MAGGIE BERRY : 2000 DATE OF CONSULTATION: 08/27/2025 HISTORY OF PRESENT ILLNESS: This 25-year-old female was seen because of cholelithiasis and possible cholecystitis. The patient was seen in the emergency room at the request of the ER physician because she was complaining of chest pain. Workup revealed that she had elevated liver enzymes and thickened gallbladder wall suggesting acute acalculous cholecystitis. The patient's history revealed that she has never had abdominal pain, but she had a chest pain on two occasions, the one was about a month ago and the other one was just this morning. The pain lasted for a short time and when she came to the emergency room, the pain has disappeared. The patient denies any history of chronic illnesses, alcohol abuse, or Tylenol ingestion. She takes xnzm-kub-hxefzsr supplement called GAYE, which is used for weight loss. The patient complains of some fatigue and depressive symptoms. The patient was living in [place] and has moved here recently. She denies any surgery. ALLERGIES: CONSISTED OF AUGMENTIN, WHICH CAUSES A RASH. PHYSICAL EXAMINATION: GENERAL: Revealed pleasant 25-year-old white female who appeared to be in her stated age. VITAL SIGNS: She is 5 feet 5 inches tall, weighing 190 pounds. Physical examination revealed the vital signs are normal. ABDOMEN: Examination of the abdomen showed no tenderness anywhere. LABORATORY DATA: The patient's WBC is within normal limits; however, her liver enzymes were markedly elevated to 491 AST and 366 ALT. Bilirubin was within normal limits. Repeat AST went up to 4310, ALT to 2816. Alkaline phosphatase was 131. The patient's ultrasound of the gallbladder showed no stones, but maybe sludge. Her CT scan showed acute acalculous cholecystitis as well as mild pancreatitis. MRCP again showed acute cholecystitis. Pelvic ultrasound, some benign ovarian cyst on the right side. IMPRESSION: I do not think the patient's liver enzyme elevation is due to common bile duct stone. This may be a form of hepatitis. There are no stones in the gallbladder and therefore, very unlikely that she will have common bile duct stone. Other causes of elevated liver enzymes need to be evaluated. The patient has some thin rim of fluid around the gallbladder on the CT scan, but I cannot rule out acute cholecystitis. COURSE OF ACTION: We shall wait for the liver enzymes to come down and then perform a HIDA scan to look at the function of the gallbladder. Until then, we will just observe her. No surgical intervention is required at this time. DT: 21:57:20 TT: 22:40:00 Ref: [id number] - TID: [id number]
[2025-08-28] MEDS: RINGERS LACTATED 1000 ML 1,000 ML 150 ML IV (02:57)
[2025-08-28 04:00] VITALS: BP 103/61; PULSE 66; RESP 17; TEMP 36.3; O2SAT 94
[2025-08-28 05:33] LABS: Basophils # (Auto) 0.0 Thou/mm3 (0.0-0.2); Basophils % (Auto) 1 % (0-2.5); Eosinophils # (Auto) 0.1 Thou/mm3 (0.0-0.5); Eosinophils % (Auto) 2 % (0-10); Hematocrit 32.0 % (36.0-46.0); Hemoglobin 11.0 g/dL (12.0-16.0); Immature Granulocytes Auto 0.02 Thou/mm3 (0.00-0.00); Lymphocytes # (Auto) 1.0 Thou/mm3 (1.0-4.8); Lymphocytes % (Auto) 23 % (10-50); Mean Corpuscular HGB Conc 34.4 g/dl (31.0-37.0); Mean Corpuscular Hemoglobin 31.8 pg (25.0-35.0); Mean Corpuscular Volume 93 fL (80-100); Monocytes # (Auto) 0.2 Thou/mm3 (0.0-0.8); Monocytes % (Auto) 6 % (0-12); Neutrophils # (Auto) 2.9 Thou/mm3 (1.8-7.7); Neutrophils % (Auto) 69 % (37-80); Nucleated Red Blood Cell # 0.00 Thou/mm3 (0.00-0.00); Nucleated Red Blood Cell % 0 /100 WBC (0); Platelet Count 258 Thou/mm3 (140-440); RDW Standard Deviation 44.5 fL (36.4-46.3); Red Blood Count 3.46 Miln/mm3 (4.00-5.20); White Blood Count 4.2 Thou/mm3 (3.6-11.0)
[2025-08-28] MEDS: LEVOTHYROXINE SODIUM 125 MCG TABLET PO (05:39)
[2025-08-28 06:05] LABS: Iron 255 mcg/dL (50-170); Percent Iron Saturation 69 % (20-55); Total Iron Binding Capacity 365 mcg/dL (250-425); Unsaturated Iron Binding 110 (225-295)
[2025-08-28 06:13] LABS: Alanine Aminotransferase 1772 U/L (10-49); Albumin, Serum 4.3 gm/dL (3.5-5.0); Albumin/Globulin Ratio 1.5 (1.2-2.2); Alkaline Phosphatase 137 U/L (46-116); Anion Gap 9 (7-16); BUN/Creatinine Ratio 8 Ratio (12-20); Bilirubin,Total 1.7 mg/dL (0.3-1.2); Blood Urea Nitrogen 10 mg/dL (9-23); Calcium 9.0 mg/dL (8.3-10.6); Calcium (Corrected) 9.0 mg/dL (8.5-10.1); Carbon Dioxide 26.7 mMol/L (20.0-31.0); Chloride 105 mMol/L (98-107); Creatine Kinase 1826 U/L (34-171); Creatinine (Component) 1.2 mg/dL (0.6-1.3); Estimated Creatinine Clearance 77.7 mL/min (>60); Free T4 (Free Thyroxine) 0.28 ng/dL (0.89-1.76); Globulin 2.8 gm/dL (2.3-3.5); Glucose 82 mg/dL (74-106); Magnesium 2.1 mg/dL (1.6-2.6); Osmolality,Calculated 279 (275-295); Phosphorous 3.6 mg/dL (2.4-5.1); Potassium 4.1 mMol/L (3.4-5.1); Sodium 141 mMol/L (136-145); Total Protein 7.1 gm/dL (5.7-8.2); eGFR > 60 See Note
--- NOTE | 2025-08-28 07:25 | ESPR_ITS ---
<Statement entered by Sharla Fraire MD - 08/28/25 16:21> I discussed with and supervised the manager internship physician who took care of this patient. I personally saw and examined the patient and discussed the assessment and plan with the entire medicine team, including my attending , I agree with the assessment and plan as documented below Sharla Fraire M.D. PGY-3 Disclaimer: Despite multiple revisions, due to the dictation software being used, the document bellow may not be free of grammatical errors including phonetic/typographic errors. However, this does not deter from our commitment to providing health care in the patient's best interest in mind. Documentation for date of: 08/28/25 Subjective Subjective Interval history: No Overnight events. Labs reviewed and patient examined at the bedside. Patient's AST decreased to 1260 from 4310, ALT decreased to 1772 from 2816, CK decreased to 1826 from 2308. Free T4: 0.28. Iron level was high with 255. Ordered Ferritin lab value for tomorrow. HIDA scan scheduled for tomorrow. Patient will continue with IVF and levothyroxine. Denies chest pain, palpation, SOB, abdominal pain, N/V, fevers or chills. Exam Vital Signs Temp Pulse Resp BP Pulse Ox O2 Del Method 97.4 F 66 17 103/61 94 L Room Air 08/28/25 04:00 08/28/25 04:00 08/28/25 04:00 08/28/25 04:00 08/28/25 04:00 08/28/25 04:00 Narrative Exam General: No acute distress, well nourished, AAO x3 Eye: PERRL, EOMI, normal conjunctiva, no scleral icterus HENT: Normocephalic, atraumatic, hearing intact to conversation at normal volume, moist oral mucosa Neck: Supple, non-tender, no JVD, no lymphadenopathy Lungs: Non-labored respirations, symmetric chest rise, Clear to auscultate bilaterally, No wheezing, rhonchi, crackles Heart: Peripheral pulses intact bilaterally, Regular Rate and Rhythm. Abdomen: Soft, non-tender, non-distended, no palpable masses Musculoskeletal: Normal range of motion and strength, No cyanosis or edema, No visible joint swelling Skin: Skin is warm, dry, no rashes or lesions. Psychiatric: Cooperative, appropriate mood and affect, Awake and alert, not agitated Neuro: Cranial nerves II-XII grossly intact. Strength 5/5 throughout. Sensations intact to light touch. Objective Labs 08/28/25 04:25 08/28/25 04:25 Labs: Laboratory Results - last 24 hr 08/27/25 08/27/25 08/27/25 06:15 09:19 09:25 WBC 3.7 D RBC 3.65 L Hgb 11.3 L Hct 33.9 L MCV 93 MCH 31.0 MCHC 33.3 RDW Std Deviation 43.9 Plt Count 279 Neut % (Auto) 60 Lymph % (Auto) 26 [place] % (Auto) 12 Eos % (Auto) 1 Baso % (Auto) 1 Neut # (Auto) 2.2 Lymph # (Auto) 1.0 [place] # (Auto) 0.5 Eos # (Auto) 0.0 Baso # (Auto) 0.0 Immature Gran # (Auto) 0.01 H Absolute Nucleated RBC 0.00 Immature Gran % 0 Nucleated RBC % 0 PT 11.9 INR 1.1 Sodium Potassium Chloride Carbon Dioxide Anion Gap BUN Creatinine Estim Creat Clear Calc eGFR BUN/Creatinine Ratio Glucose Calculated Osmolality Calcium Corrected Calcium Phosphorus Magnesium Iron TIBC Iron Saturation Unsat Iron Binding Total Bilirubin 1.0 Direct Bilirubin 0.4 H AST 4310 H* ALT 2816 H* Alkaline Phosphatase 131 H D Total Creatine Kinase 2308 H Total Protein 7.4 Albumin 4.6 Globulin Albumin/Globulin Ratio Free T4 Free T3 pg/dL 0.3 L Salicylates < 3.0 Ethyl Alcohol < 3.0 Monoscreen Negative 08/28/25 04:25 WBC 4.2 RBC 3.46 L Hgb 11.0 L Hct 32.0 L MCV 93 MCH 31.8 MCHC 34.4 RDW Std Deviation 44.5 Plt Count 258 Neut % (Auto) 69 Lymph % (Auto) 23 [place] % (Auto) 6 Eos % (Auto) 2 Baso % (Auto) 1 Neut # (Auto) 2.9 Lymph # (Auto) 1.0 [place] # (Auto) 0.2 Eos # (Auto) 0.1 Baso # (Auto) 0.0 Immature Gran # (Auto) 0.02 H Absolute Nucleated RBC 0.00 Immature Gran % 1 H Nucleated RBC % 0 PT INR Sodium 141 Potassium 4.1 Chloride 105 Carbon Dioxide 26.7 Anion Gap 9 BUN 10 Creatinine 1.2 Estim Creat Clear Calc 77.7 eGFR > 60 BUN/Creatinine Ratio 8 L Glucose 82 Calculated Osmolality 279 Calcium 9.0 Corrected Calcium 9.0 Phosphorus 3.6 Magnesium 2.1 Iron 255 H TIBC 365 Iron Saturation 69 H Unsat Iron Binding 110 L Total Bilirubin 1.7 H D Direct Bilirubin AST ALT 1772 H* Alkaline Phosphatase 137 H Total Creatine Kinase 1826 H D Total Protein 7.1 Albumin 4.3 Globulin 2.8 Albumin/Globulin Ratio 1.5 Free T4 0.28 L Free T3 pg/dL Salicylates Ethyl Alcohol Monoscreen Quality Measures Quality Measures none Assessment & Plan Assessment Current Active Medications: Generic Name Dose Route Start Last Admin Trade Name Freq PRN Reason Stop Dose Admin Al Hydrox/Mg Hydrox/Simethicone 30 ml 08/27/25 10:26 Mg Hyd/Al Hyd/Linsey (Maalox Reg) Susp 30 Ml Udc PO 09/26/25 10:25 Q6H PRN Indigestion Lactated Ringer's 1,000 mls @ 150 mls/hr 08/28/25 02:47 08/28/25 02:57 Lactated Ringers IV 09/27/25 02:46 150 mls/hr .[id number] LUIZ Administration Levothyroxine Sodium 125 mcg 08/27/25 13:30 08/28/25 05:39 Levothyroxine Sodium 125 Mcg Tablet PO 09/26/25 13:29 125 mcg ACBR LUIZ Administration Ondansetron HCl 4 mg 08/27/25 10:26 Ondansetron Inj 2 Mg/Ml Inj 2 Ml IVP 09/26/25 10:25 Q6H PRN NAUSEA OR VOMITING Protocol Plan 25-year-old female with past medical history of hypothyroidism, presented to the hospital on 08/26/2025 due to epigastric pain that began last night at approximately 7pm. Patient has been admitted for management of acute liver injury #Hypothyroidism-induced Rhabdomyolysis #with Secondary transaminitis #Hypothyrodism -Ddx includes Autoimmune hepatitis, Primary biliary cholangitis, Viral hepatitis -Sharp intermittent epigastric pain that has been resolved. Denies muscular pain, acute muscle weakness, or swelling, or brown/tea-colored urine. -No recent surgery, burn, electricity contact, physical restraint, unlikely traumatic rhabdomyolysis -No recent prolonged exercise, seizures or psychotic agitation, No medical history of myopathies, alcoholism, drugs (ex. Statins, illicit substances), recent infections, or alcoholism -Labs: WBC 8.0, Hgb 10.7, HCT 31.4, sodium 141, potassium 4.1, BUN 12, creatinine 1.4, eGFR 54, AST 491, ALT 366, ALP 74, troponin< 0.002, BNP <20, T SH>150, free T4<0.10. -After 8 hours, Repeat AST: 4310, ALT: 2816, ALP:131 -UA (08/26/2025): Turbid, yellow urine, urine pH 6.5, urine protein 1+, urine blood negative, urine glucose negative, urine RBC 23, urine WBC 36, urine nitrate negative, urine bacteria rare, urine yeast present, urine hCG negative, urine leukocyte esterase positive. -On admission, CK: 2308 -Currently, CK: 1826, AST:1260, ALT:1772 Plan: -Patient at risk for electrolyte abnormalities, requires aggressive IV hydration -Continue to monitor serum CK and electrolyte levels. CK likely to peak within next 3 days. -Started IVF LR IV 100ml/hr -Started on Levothyroxine 125 mcg PO qd -If pt volume overloaded, consider diuresis -Pending TSI, TPO antibodies, Thyroglobulin abs, ANCA Scrn, MPO&PR3, Mitochondrial ab -Strict I and Os #PRINCE, Intrinsic #ATN -Upon admission, BUN 12 , Cr 1.4 (Baseline unknown), eGFR 54 , BUN/Cr:9 (<15) -Likely ATN, seconday to rhabdomyolysis. -Patient appear to be euvolemic on exam, no edema, lungs clear, mucus membranes dry. Plan: -Started 1 L IV LR 100ml/hr maintenance fluid -Avoid nephrotoxins -Renally dose medication #Cholecysitis R/O -Non-radiating epigastric pain that has completely resolved after Diazepam 5mg PO x1 -GallBladder US (08/27/2025): Negative for cholelithiasis, No gallbladder wall edema, Normal common bile -MRCP (08/27/2025): Acute cholecystitis, Acute pancreatitis, no pseudocyst -CT A/P (08/27/2025): Suspicious for acute acalculous cholecystitis as well as mild pancreatitis, Moderate free fluid in the pelvis Plan: -HIDA scan pending. -CTM electrolytes -Daily CBC, CMP #Multiple small benign right ovarian Cysts -Pelvic US (08/27/2025): Multiple small benign right ovarian cysts, the largest 26 x 26 x 23 mm, No free fluid in the cul-de-sac Plan: -Patient needs to follow up outpatient. Disposition: Med surg Diet: Regular GI prophylaxis: Maalox DVT prophylaxis: SCD Code: FULL Assessment and plan discussed with my attending physician Dr. Grant and Dr. Fraire (PGY-3) Dr. Murray (PGY-1) - Internal medicine resident Attending Provider Attestation/Addendum I attest that I was physically present for the evaluation, physical examination, lab and imaging review of the patient with the residents. I discussed the case with the residents and agree with the findings and plans of care as documented above. Patient seen and examined at bedside this morning. Appears comfortable and denies any new complaints. Patient had another episode of epigastric pain yesterday but has completely resolved now. Denies any nausea, vomiting, change in bowel habits. Liver function and kidney function has been improving. Continues to be on IV hydration, IV fluid rate decreased from 150 to 100 cc/h. Vital signs are stable. General surgery and gastroenterology following closely, recommended medical management for the time being, will reevaluate tomorrow, if continues to improve, will obtain HIDA scan to rule out cholecystitis. Tyrese Grant MD
[2025-08-28 07:27] LABS: Aspartate Amino Transferase 1260 U/L (0-34)
[2025-08-28 07:41] VITALS: BP 101/64; PULSE 73; RESP 16; TEMP 36.2; O2SAT 94
[2025-08-28] MEDS: RINGERS LACTATED 1000 ML 1,000 ML 100 ML IV ×2 (08:45→20:49)
[2025-08-28] MEDS: IBUPROFEN TAB 400 MG TABLET PO ×2 (08:45→23:20)
--- NOTE | 2025-08-28 10:15 | PC.SS ---
Patient Ely Matson is a 25 Year old female admitted for Epigastric Chest Pain. SS met with patient at bedside to discuss discharge plan and verify demographic information. Patient reports he lives at home with her , Kvng Matson who she reports is his surrogate decision maker, [phone]. Patient reports he does not utilize any source of DME to assist with ambulation. Patient is able to complete all ADL's independently. PCP is Shlomo Seymour At time of discharge patient will return back home. Patient's mother will provide transportation. Discharge plan: Home Next of Kin: , Kvng Matson [phone]
[2025-08-28 12:00] VITALS: BP 110/76; PULSE 75; RESP 18; TEMP 36.6; O2SAT 93
[2025-08-28] MEDS: FAMOTIDINE 20 MG TABLET PO (14:19)
--- NOTE | 2025-08-28 14:34 | PC.SS ---
Update: LFT's trending, Pending Dr. Jeyson Anderson Patient will discharge home when medically cleared.
[2025-08-28 16:00] VITALS: BP 104/68; PULSE 87; RESP 17; TEMP 36.2; O2SAT 92
--- NOTE | 2025-08-28 17:40 | PD.SURPROG ---
Documentation for date of: 08/28/25 Subjective Subjective Narrative: Patient has no symptoms of any pain either chest or abdomen. Exam Vital Signs Temp Pulse Resp BP Pulse Ox O2 Del Method 97.2 F 87 17 104/68 92 L Room Air 08/28/25 16:00 08/28/25 16:00 08/28/25 16:00 08/28/25 16:00 08/28/25 16:00 08/28/25 16:00 Her vital signs are normal Routine Abdominal Exam Comments: Abdominal examination is negative Results Results: Laboratory Laboratory Narrative: Laboratory results show improving LFTs Assessment & Plan Assessment Additional comments: Impression: Resolving hepatitis Plan Plan: Patient had a HIDA scan to rule out acute cholecystitis or poor ejection fraction tomorrow
--- NOTE | 2025-08-28 19:12 | PD.IMPROG ---
Documentation for date of: 08/28/25 Subjective Subjective Interval history: Improving LFTs with total bilirubin 0.4 AST 1261 ALT 1772 CPK down to 1821 Exam Vital Signs Temp Pulse Resp BP Pulse Ox O2 Del Method 97.2 F 87 17 104/68 92 L Room Air 08/28/25 16:00 08/28/25 16:00 08/28/25 16:00 08/28/25 16:00 08/28/25 16:00 08/28/25 16:00 Objective Labs 08/28/25 04:25 08/28/25 04:25 Labs: Laboratory Results - last 24 hr 08/28/25 04:25 WBC 4.2 RBC 3.46 L Hgb 11.0 L Hct 32.0 L MCV 93 MCH 31.8 MCHC 34.4 RDW Std Deviation 44.5 Plt Count 258 Neut % (Auto) 69 Lymph % (Auto) 23 [place] % (Auto) 6 Eos % (Auto) 2 Baso % (Auto) 1 Neut # (Auto) 2.9 Lymph # (Auto) 1.0 [place] # (Auto) 0.2 Eos # (Auto) 0.1 Baso # (Auto) 0.0 Immature Gran # (Auto) 0.02 H Absolute Nucleated RBC 0.00 Immature Gran % 1 H Nucleated RBC % 0 Sodium 141 Potassium 4.1 Chloride 105 Carbon Dioxide 26.7 Anion Gap 9 BUN 10 Creatinine 1.2 Estim Creat Clear Calc 77.7 eGFR > 60 BUN/Creatinine Ratio 8 L Glucose 82 Calculated Osmolality 279 Calcium 9.0 Corrected Calcium 9.0 Phosphorus 3.6 Magnesium 2.1 Iron 255 H TIBC 365 Iron Saturation 69 H Unsat Iron Binding 110 L Total Bilirubin 1.7 H D AST 1260 H* ALT 1772 H* Alkaline Phosphatase 137 H Total Creatine Kinase 1826 H D Total Protein 7.1 Albumin 4.3 Globulin 2.8 Albumin/Globulin Ratio 1.5 Free T4 0.28 L Impressions Impression: Abnormal LFTs due to hypoxic hepatitis hypothyroidism complicated by rhabdomyolysis Continue to monitor LFTs and CPK Advance diet as tolerated Assessment & Plan A&P Narrative # Primarily transaminitis in the setting of elevated CPK and TSH greater than 150 Hypothyroidism itself can cause transaminase elevation and she is significantly hypothyroid And the picture is complicated by CPK elevation suggestive of rhabdomyolysis that it self can also cause particularly AST elevation and not so much ALT elevation because ALT is liver specific Other differential diagnosis considered would be acute hypoxic hepatitis Her clinical picture is complicated by edema surrounding the pancreas and she has been asymptomatic as well as the severity of the abdominal pain is concerned although she did have atypical chest pain Suggestions Trend the LFTs I see the dosing of levothyroxine and only 125 mcg daily will recommend at least going up to 200 mcg a day Once the hypothyroidism improves AST ALT will start improving IV hydration for the elevated CK Will order complete workup for the liver disease to rule out any evidence of chronic active diabetes which I do suspect she has Very interesting case and I will follow the patient with you Thank you once again for the opportunity to participate in the care of this patient Time Spent With Patient Time: Total time spent is greater than 50% in coordination of care (as documented) at patient's floor/unit and/or counseling patient:
[2025-08-28 19:43] VITALS: BP 109/75; PULSE 69; RESP 17; TEMP 36.2; O2SAT 97
[2025-08-28 22:17] LABS: AFP Non-Pregnant 3.10 ng/mL (<8.10); Hepatitis A Antibody IgM Non Reactive (Non React); Hepatitis B Core Antibody IgM Non Reactive (Non React); Hepatitis B Surface Antigen Non Reactive (Non React); Hepatitis C Antibody Non Reactive (Non React)
--- NOTE | 2025-08-28 23:11 | PC.NURSE ---
Contacted Dr. Matias regarding patient chief complaint of pain of her head and back. An order of 650 mg acetaminophen was ordered but was made aware that the patient's liver enzyme are high. Due to the patient's liver enzyme level, Dr. Matias ordered motrin (iboprofen) 400mg instead of Acetaminophen. Order was read back and verified by both nurse and
[2025-08-29] VITALS: BP 96/62; PULSE 54; RESP 17; TEMP 36.1; O2SAT 92
[2025-08-29 04:00] VITALS: BP 107/58; PULSE 72; RESP 16; TEMP 36.4; O2SAT 92
[2025-08-29] MEDS: LEVOTHYROXINE SODIUM 125 MCG TABLET PO (05:21)
[2025-08-29 06:03] LABS: Basophils # (Auto) 0.1 Thou/mm3 (0.0-0.2); Basophils % (Auto) 1 % (0-2.5); Eosinophils # (Auto) 0.1 Thou/mm3 (0.0-0.5); Eosinophils % (Auto) 2 % (0-10); Hematocrit 30.9 % (36.0-46.0); Hemoglobin 10.3 g/dL (12.0-16.0); Immature Granulocytes Auto 0.03 Thou/mm3 (0.00-0.00); Lymphocytes # (Auto) 1.7 Thou/mm3 (1.0-4.8); Lymphocytes % (Auto) 31 % (10-50); Mean Corpuscular HGB Conc 33.3 g/dl (31.0-37.0); Mean Corpuscular Hemoglobin 31.1 pg (25.0-35.0); Mean Corpuscular Volume 93 fL (80-100); Monocytes # (Auto) 0.5 Thou/mm3 (0.0-0.8); Monocytes % (Auto) 9 % (0-12); Neutrophils # (Auto) 3.1 Thou/mm3 (1.8-7.7); Neutrophils % (Auto) 57 % (37-80); Nucleated Red Blood Cell # 0.00 Thou/mm3 (0.00-0.00); Nucleated Red Blood Cell % 0 /100 WBC (0); Platelet Count 236 Thou/mm3 (140-440); RDW Standard Deviation 44.6 fL (36.4-46.3); Red Blood Count 3.31 Miln/mm3 (4.00-5.20); White Blood Count 5.4 Thou/mm3 (3.6-11.0)
[2025-08-29 06:28] LABS: Ferritin 83 ng/mL (7.3-270.7)
[2025-08-29 06:34] LABS: Alanine Aminotransferase 1097 U/L (10-49); Albumin, Serum 4.2 gm/dL (3.5-5.0); Albumin/Globulin Ratio 1.6 (1.2-2.2); Alkaline Phosphatase 123 U/L (46-116); Anion Gap 9 (7-16); Aspartate Amino Transferase 600 U/L (0-34); BUN/Creatinine Ratio 7 Ratio (12-20); Bilirubin,Total 0.9 mg/dL (0.3-1.2); Blood Urea Nitrogen 8 mg/dL (9-23); Calcium 9.3 mg/dL (8.3-10.6); Calcium (Corrected) 9.3 mg/dL (8.5-10.1); Carbon Dioxide 27.8 mMol/L (20.0-31.0); Chloride 103 mMol/L (98-107); Creatinine (Component) 1.2 mg/dL (0.6-1.3); Estimated Creatinine Clearance 77.7 mL/min (>60); Globulin 2.7 gm/dL (2.3-3.5); Glucose 75 mg/dL (74-106); Magnesium 1.8 mg/dL (1.6-2.6); Osmolality,Calculated 276 (275-295); Phosphorous 3.7 mg/dL (2.4-5.1); Potassium 4.1 mMol/L (3.4-5.1); Sodium 140 mMol/L (136-145); Total Protein 6.9 gm/dL (5.7-8.2); eGFR > 60 See Note
[2025-08-29 06:49] LABS: Creatine Kinase 1496 U/L (34-171)
[2025-08-29 07:20] VITALS: BP 104/81; PULSE 68; RESP 16; TEMP 36.3; O2SAT 97
[2025-08-29 08:52] LABS: Cardiac Risk Estimate 4.3 RATIO (3.7-5.6); Cholesterol 298 mg/dL (132-200); Free T4 (Free Thyroxine) 0.30 ng/dL (0.89-1.76); HDL Cholesterol 70 mg/dL (40-60); LDL Cholesterol,Calculated 212 mg/dL (0-130); Thyroid Stimulating Hormone > 150.00 uIU/mL (0.55-4.78); Triglycerides 78 mg/dL (30-150)
--- NOTE | 2025-08-29 09:00 | XR_ITS ---
Examination: JOSE ALEJANDRO, hepatobiliary radioisotope scan Gallbladder ejection fraction study. Date and time of exam: August 29, 2025, 1724 hrs. Indications: Elevated liver function tests, epigastric pain abdominal pain months Technique: 5.8 mCi of 99M Hepatolite administered. Serial imaging then obtained from immediate through 60 minutes. 1.8 mcg selective catheter Kinevac administered for gallbladder ejection fraction study. Findings: Radioisotope activity within the liver is reasonably homogenous. Gallbladder, common bile duct small bowel activity noted Impression: Gallbladder activity Abnormal gallbladder ejection fraction, 29%, normal greater than 35%
--- NOTE | 2025-08-29 09:13 | PC.SS ---
Follow up note: Possible surgery for gallbladder.
[2025-08-29] MEDS: PANTOPRAZOLE 40 MG TABLET PO (10:41)
[2025-08-29] MEDS: Magnesium Sulfate 4 GM Ivpb 4 GM/50 ML BAG IV (10:42)
[2025-08-29 11:30] VITALS: BP 111/73; PULSE 60; RESP 16; TEMP 36.3; O2SAT 98
--- NOTE | 2025-08-29 14:49 | PD.RESPRO ---
Documentation for date of: 08/29/25 Subjective Subjective Interval history: Patient seen and examined in the hospital bed denies having any concerning symptoms at this time. On examination, patient denies having any tenderness to palpation on all 4 quadrants. HIDA scan is pending and will be completed on 08/29 with results determining if the patient will require laparoscopic cholecystectomy. Will continue monitoring patient's TSH and free T4 and continue 125 mcg of levothyroxine for hypothyroidism which is likely cause of patient's PRINCE/rhabdomyolysis. Patient is clinically improving and we expect discharge within the next 24 to 48 hours. Exam Vital Signs Temp Pulse Resp BP Pulse Ox O2 Del Method 97.4 F 60 16 111/73 98 Nasal Cannula 08/29/25 11:30 08/29/25 11:30 08/29/25 11:30 08/29/25 11:30 08/29/25 11:30 08/29/25 11:30 Narrative Exam General: No acute distress, well nourished, AAO x3 Eye: PERRL, EOMI, normal conjunctiva, no scleral icterus HENT: Normocephalic, atraumatic, hearing intact to conversation at normal volume, moist oral mucosa Neck: Supple, non-tender, no JVD, no lymphadenopathy Lungs: Non-labored respirations, symmetric chest rise, Clear to auscultate bilaterally, No wheezing, rhonchi, crackles Heart: Peripheral pulses intact bilaterally, Regular Rate and Rhythm. Abdomen: Soft, non-tender, non-distended, no palpable masses Musculoskeletal: Normal range of motion and strength, No cyanosis or edema, No visible joint swelling Skin: Skin is warm, dry, no rashes or lesions. Psychiatric: Cooperative, appropriate mood and affect, Awake and alert, not agitated Neuro: Cranial nerves II-XII grossly intact. Strength 5/5 throughout. Sensations intact to light touch. Objective Labs 08/29/25 04:27 08/29/25 04:27 Labs: Laboratory Results - last 24 hr 08/28/25 08/29/25 04: 04:27 WBC 5.4 RBC 3.31 L Hgb 10.3 L Hct 30.9 L MCV 93 MCH 31.1 MCHC 33.3 RDW Std Deviation 44.6 Plt Count 236 Neut % (Auto) 57 Lymph % (Auto) 31 [place] % (Auto) 9 Eos % (Auto) 2 Baso % (Auto) 1 Neut # (Auto) 3.1 Lymph # (Auto) 1.7 [place] # (Auto) 0.5 Eos # (Auto) 0.1 Baso # (Auto) 0.1 Immature Gran # (Auto) 0.03 H Absolute Nucleated RBC 0.00 Immature Gran % 1 H Nucleated RBC % 0 Sodium 140 Potassium 4.1 Chloride 103 Carbon Dioxide 27.8 Anion Gap 9 BUN 8 L Creatinine 1.2 Estim Creat Clear Calc 77.7 eGFR > 60 BUN/Creatinine Ratio 7 L Glucose 75 Calculated Osmolality 276 Calcium 9.3 Corrected Calcium 9.3 Phosphorus 3.7 Magnesium 1.8 Ferritin 83 Total Bilirubin 0.9 D AST 600 H* ALT 1097 H* Alkaline Phosphatase 123 H Total Creatine Kinase 1496 H D Total Protein 6.9 Albumin 4.2 Globulin 2.7 Albumin/Globulin Ratio 1.6 Triglycerides 78 Cholesterol 298 H LDL Cholesterol, Calc 212 H HDL Cholesterol 70 H Cholesterol/HDL Ratio 4.3 Tumor Marker AFP 3.10 TSH > 150.00 H* Free T4 0.30 L Hepatitis A IgM Ab Non Reactive Hep Bs Antigen Non Reactive Hep B Core IgM Ab Non Reactive Hepatitis C Antibody Non Reactive Quality Measures Quality Measures none Assessment & Plan Assessment Current Active Medications: Generic Name Dose Route Start Last Admin Trade Name Freq PRN Reason Stop Dose Admin Al Hydrox/Mg Hydrox/Simethicone 30 ml 08/27/25 10:26 Mg Hyd/Al Hyd/Linsey (Maalox Reg) Susp 30 Ml Udc PO 09/26/25 10:25 Q6H PRN Indigestion Lactated Ringer's 1,000 mls @ 100 mls/hr 08/28/25 08:37 08/28/25 20:49 Lactated Ringers IV 09/27/25 08:36 100 mls/hr .Q10H LUIZ Administration Ibuprofen 400 mg 08/28/25 23:09 08/28/25 23:20 Ibuprofen Tab 400 Mg Tablet PO 09/27/25 23:08 400 mg Q6HR PRN Administration Mild pain 1-6 or Fever>100.4 Levothyroxine Sodium 125 mcg 08/27/25 13:30 08/29/25 05:21 Levothyroxine Sodium 125 Mcg Tablet PO 09/26/25 13:29 125 mcg ACBR LUIZ Administration Ondansetron HCl 4 mg 08/27/25 10:26 Ondansetron Inj 2 Mg/Ml Inj 2 Ml IVP 09/26/25 10:25 Q6H PRN NAUSEA OR VOMITING Protocol Pantoprazole Sodium 40 mg 08/29/25 09:00 08/29/25 10:41 Pantoprazole 40 Mg Tablet PO 09/28/25 08:59 40 mg QDAY LUZI Administration Plan 25-year-old female with past medical history of hypothyroidism, presented to the hospital on 08/26/2025 due to epigastric pain that began last night at approximately 7pm. Patient has been admitted for management of acute liver injury #Hypothyroidism-induced Rhabdomyolysis #with Secondary transaminitis #Hypothyrodism -Ddx includes Autoimmune hepatitis, Primary biliary cholangitis, Viral hepatitis -Sharp intermittent epigastric pain that has been resolved. Denies muscular pain, acute muscle weakness, or swelling, or brown/tea-colored urine. -No recent surgery, burn, electricity contact, physical restraint, unlikely traumatic rhabdomyolysis -No recent prolonged exercise, seizures or psychotic agitation, No medical history of myopathies, alcoholism, drugs (ex. Statins, illicit substances), recent infections, or alcoholism -Labs: WBC 8.0, Hgb 10.7, HCT 31.4, sodium 141, potassium 4.1, BUN 12, creatinine 1.4, eGFR 54, AST 491, ALT 366, ALP 74, troponin< 0.002, BNP <20, TSH>150, free T4<0.10. -After 8 hours, Repeat AST: 4310, ALT: 2816, ALP:131 -UA (08/26/2025): Turbid, yellow urine, urine pH 6.5, urine protein 1+, urine blood negative, urine glucose negative, urine RBC 23, urine WBC 36, urine nitrate negative, urine bacteria rare, urine yeast present, urine hCG negative, urine leukocyte esterase positive. -On admission, CK: 2308 -Currently, CK: 1826, AST:1260, ALT:1772 Plan: -Continue to monitor serum CK and electrolyte levels. -Continue IVF LR IV 100ml/hr -Continue on Levothyroxine 125 mcg PO qd -Pending TSI, TPO antibodies, Thyroglobulin abs, ANCA Scrn, MPO&PR3, Mitochondrial ab -GI following, appreciate recommendations -Strict I and Os #PRINCE, improving -Upon admission, BUN 12 , Cr 1.4 (Baseline unknown), eGFR 54 , BUN/Cr:9 (<15) -Likely ATN, seconday to rhabdomyolysis. -Patient appear to be euvolemic on exam, no edema, lungs clear, mucus membranes dry. Plan: -Continue 1 L IV LR 100ml/hr maintenance fluid -Avoid nephrotoxins -Renally dose medication #Cholecysitis R/O -Non-radiating epigastric pain that has completely resolved after Diazepam 5mg PO x1 -GallBladder US (08/27/2025): Negative for cholelithiasis, No gallbladder wall edema, Normal common bile -MRCP (08/27/2025): Acute cholecystitis, Acute pancreatitis, no pseudocyst -CT A/P (08/27/2025): Suspicious for acute acalculous cholecystitis as well as mild pancreatitis, Moderate free fluid in the pelvis Plan: -HIDA scan pending -General Surgery consulted, appreciate recommendations -CTM electrolytes -Daily CBC, CMP #Multiple small benign right ovarian Cysts -Pelvic US (08/27/2025): Multiple small benign right ovarian cysts, the largest 26 x 26 x 23 mm, No free fluid in the cul-de-sac Plan: -Patient needs to follow up outpatient. Health Maintenance: Disposition: Med surg Diet: Regular GI prophylaxis: Maalox DVT prophylaxis: SCD Code: FULL Patient seen and assessed with attending Dr. Rudy Lorenzana DO PGY-2 Internal Medicine - GME Attending Provider Attestation/Addendum I attest that I was physically present for the evaluation, physical examination, lab and imaging review of the patient with the residents. I discussed the case with the residents and agree with the findings and plans of care as documented above. Patient seen and examined at bedside this morning. Appears comfortable and denies any new complaints. Does not have any abdominal pain, nausea or vomiting. Has been tolerating her diet well. Vital signs are stable. Lab results are stable as well. Liver function, CK level has been improving. Urine/creatinine is also stable, 8/1.2 today. General surgery and gastroenterology following closely, appreciate recommendations. And for HIDA scan today. Tyrese Grant MD
[2025-08-29 16:00] VITALS: BP 105/70; PULSE 64; RESP 18; TEMP 36.6; O2SAT 98
--- NOTE | 2025-08-29 19:26 | PD.IMPROG ---
Documentation for date of: 08/29/25 Subjective Subjective Interval history: Patient evaluated CC HIDA scan shows ejection fraction of 27% AST ALT down to 610 And 1097 Improving Exam Vital Signs Temp Pulse Resp BP Pulse Ox O2 Del Method 97.8 F 64 18 105/70 98 Room Air 08/29/25 16:00 08/29/25 16:00 08/29/25 16:00 08/29/25 16:00 08/29/25 16:00 08/29/25 16:00 Objective Labs 08/29/25 04:27 08/29/25 04:27 Labs: Laboratory Results - last 24 hr 08/28/25 08/29/25 04:25 04:27 WBC 5.4 RBC 3.31 L Hgb 10.3 L Hct 30.9 L MCV 93 MCH 31.1 MCHC 33.3 RDW Std Deviation 44.6 Plt Count 236 Neut % (Auto) 57 Lymph % (Auto) 31 [place] % (Auto) 9 Eos % (Auto) 2 Baso % (Auto) 1 Neut # (Auto) 3.1 Lymph # (Auto) 1.7 [place] # (Auto) 0.5 Eos # (Auto) 0.1 Baso # (Auto) 0.1 Immature Gran # (Auto) 0.03 H Absolute Nucleated RBC 0.00 Immature Gran % 1 H Nucleated RBC % 0 Sodium 140 Potassium 4.1 Chloride 103 Carbon Dioxide 27.8 Anion Gap 9 BUN 8 L Creatinine 1.2 Estim Creat Clear Calc 77.7 eGFR > 60 BUN/Creatinine Ratio 7 L Glucose 75 Calculated Osmolality 276 Calcium 9.3 Corrected Calcium 9.3 Phosphorus 3.7 Magnesium 1.8 Ferritin 83 Total Bilirubin 0.9 D AST 600 H* ALT 1097 H* Alkaline Phosphatase 123 H Total Creatine Kinase 1496 H D Total Protein 6.9 Albumin 4.2 Globulin 2.7 Albumin/Globulin Ratio 1.6 Triglycerides 78 Cholesterol 298 H LDL Cholesterol, Calc 212 H HDL Cholesterol 70 H Cholesterol/HDL Ratio 4.3 Tumor Marker AFP 3.10 TSH > 150.00 H* Free T4 0.30 L Hepatitis A IgM Ab Non Reactive Hep Bs Antigen Non Reactive Hep B Core IgM Ab Non Reactive Hepatitis C Antibody Non Reactive Impressions Impression: Transaminitis improving due to hypothyroidism rhabdomyolysis and possibly hypoxic hepatitis Bili dyskinesia very mild at 27% no recommendation for any surgical intervention Assessment & Plan A&P Narrative # Primarily transaminitis in the setting of elevated CPK and TSH greater than 150 Hypothyroidism itself can cause transaminase elevation and she is significantly hypothyroid And the picture is complicated by CPK elevation suggestive of rhabdomyolysis that it self can also cause particularly AST elevation and not so much ALT elevation because ALT is liver specific Other differential diagnosis considered would be acute hypoxic hepatitis Her clinical picture is complicated by edema surrounding the pancreas and she has been asymptomatic as well as the severity of the abdominal pain is concerned although she did have atypical chest pain Suggestions Trend the LFTs I see the dosing of levothyroxine and only 125 mcg daily will recommend at least going up to 200 mcg a day Once the hypothyroidism improves AST ALT will start improving IV hydration for the elevated CK Will order complete workup for the liver disease to rule out any evidence of chronic active diabetes which I do suspect she has Very interesting case and I will follow the patient with you Thank you once again for the opportunity to participate in the care of this patient Time Spent With Patient Time: Total time spent is greater than 50% in coordination of care (as documented) at patient's floor/unit and/or counseling patient:
[2025-08-29 20:00] VITALS: BP 113/77; PULSE 75; RESP 16; TEMP 36.4; O2SAT 98
[2025-08-29] MEDS: RINGERS LACTATED 1000 ML 1,000 ML 100 ML IV (20:28)
[2025-08-29] MEDS: IBUPROFEN TAB 400 MG TABLET PO (20:35)
[2025-08-30] VITALS: BP 94/62; PULSE 57; RESP 16; TEMP 36.6; O2SAT 96
[2025-08-30 04:00] VITALS: BP 101/66; PULSE 53; RESP 18; TEMP 36.8; O2SAT 99
[2025-08-30 05:25] LABS: Basophils # (Auto) 0.1 Thou/mm3 (0.0-0.2); Basophils % (Auto) 1 % (0-2.5); Eosinophils # (Auto) 0.1 Thou/mm3 (0.0-0.5); Eosinophils % (Auto) 2 % (0-10); Hematocrit 30.4 % (36.0-46.0); Hemoglobin 10.4 g/dL (12.0-16.0); Immature Granulocytes Auto 0.02 Thou/mm3 (0.00-0.00); Lymphocytes # (Auto) 1.7 Thou/mm3 (1.0-4.8); Lymphocytes % (Auto) 32 % (10-50); Mean Corpuscular HGB Conc 34.2 g/dl (31.0-37.0); Mean Corpuscular Hemoglobin 31.5 pg (25.0-35.0); Mean Corpuscular Volume 92 fL (80-100); Monocytes # (Auto) 0.4 Thou/mm3 (0.0-0.8); Monocytes % (Auto) 7 % (0-12); Neutrophils # (Auto) 3.0 Thou/mm3 (1.8-7.7); Neutrophils % (Auto) 58 % (37-80); Nucleated Red Blood Cell # 0.00 Thou/mm3 (0.00-0.00); Nucleated Red Blood Cell % 0 /100 WBC (0); Platelet Count 268 Thou/mm3 (140-440); RDW Standard Deviation 43.3 fL (36.4-46.3); Red Blood Count 3.30 Miln/mm3 (4.00-5.20); White Blood Count 5.2 Thou/mm3 (3.6-11.0)
[2025-08-30] MEDS: LEVOTHYROXINE SODIUM 125 MCG TABLET PO (05:51)
[2025-08-30 06:02] LABS: Alanine Aminotransferase 817 U/L (10-49); Albumin, Serum 4.1 gm/dL (3.5-5.0); Albumin/Globulin Ratio 1.6 (1.2-2.2); Alkaline Phosphatase 111 U/L (46-116); Anion Gap 8 (7-16); Aspartate Amino Transferase 361 U/L (0-34); BUN/Creatinine Ratio 6 Ratio (12-20); Bilirubin,Total 0.9 mg/dL (0.3-1.2); Blood Urea Nitrogen 8 mg/dL (9-23); Calcium 8.5 mg/dL (8.3-10.6); Calcium (Corrected) 8.5 mg/dL (8.5-10.1); Carbon Dioxide 28.2 mMol/L (20.0-31.0); Chloride 104 mMol/L (98-107); Creatine Kinase 1258 U/L (34-171); Creatinine (Component) 1.4 mg/dL (0.6-1.3); Estimated Creatinine Clearance 66.6 mL/min (>60); Globulin 2.6 gm/dL (2.3-3.5); Glucose 71 mg/dL (74-106); Magnesium 2.2 mg/dL (1.6-2.6); Osmolality,Calculated 275 (275-295); Phosphorous 3.7 mg/dL (2.4-5.1); Potassium 4.4 mMol/L (3.4-5.1); Sodium 140 mMol/L (136-145); Total Protein 6.7 gm/dL (5.7-8.2); eGFR 54 See Note
[2025-08-30 07:30] VITALS: BP 103/64; PULSE 62; RESP 16; TEMP 36.6; O2SAT 100
[2025-08-30] MEDS: RINGERS LACTATED 1000 ML 1,000 ML 500 ML IV (08:09)
[2025-08-30] MEDS: PANTOPRAZOLE 40 MG TABLET PO (08:09)
--- NOTE | 2025-08-30 08:35 | XR_ITS ---
Examination: Retroperitoneal ultrasound, complete Technique: Multiple high resolution grayscale images of the retroperitoneum obtained, including kidneys and bladder. Exam date and time: August 30, 2025, 0930 hours INDICATIONS: Renal insufficiency on laboratory examination today FINDINGS: Right kidney 10.1 cm cortex 2.1 cm Left kidney 9.7 cm renal cortex 1.9 cm Mild right hydronephrosis Moderate bilateral renal parenchymal scar formation No bladder mass or bladder calculi Bladder prevoid volume 324 cc post void volume 17 cc IMPRESSION: Mild right hydronephrosis, clinical correlation advised
[2025-08-30 11:30] VITALS: BP 111/73; PULSE 56; RESP 16; TEMP 36.3; O2SAT 98
[2025-08-30 14:14] LABS: Albumin, Serum 4.2 gm/dL (3.5-5.0); Anion Gap 7 (7-16); BUN/Creatinine Ratio 7 Ratio (12-20); Blood Urea Nitrogen 9 mg/dL (9-23); Calcium 8.6 mg/dL (8.3-10.6); Calcium (Corrected) 8.6 mg/dL (8.5-10.1); Carbon Dioxide 27.7 mMol/L (20.0-31.0); Chloride 104 mMol/L (98-107); Creatinine (Component) 1.3 mg/dL (0.6-1.3); Estimated Creatinine Clearance 71.7 mL/min (>60); Glucose 103 mg/dL (74-106); Osmolality,Calculated 276 (275-295); Phosphorous 2.8 mg/dL (2.4-5.1); Potassium 3.9 mMol/L (3.4-5.1); Sodium 139 mMol/L (136-145); eGFR 59 See Note
--- NOTE | 2025-08-30 15:08 | ESPR_ITS ---
Documentation for date of: 08/30/25 Subjective Subjective Interval history: No Overnight events. Labs reviewed and patient examined at the bedside. HIDA scan (08/29/2025) showed abnormal gallbladder ejection ejection fraction of 29% (normal >35%). Renal ultrasound (08/30/2025) showed Right kidney 10.1 cm cortex 2.1 cm, Left kidney 9.7 cm renal cortex 1.9 cm, Mild right hydronephrosis, Moderate bilateral renal parenchymal scar formation, No bladder mass or bladder calculi, Bladder prevoid volume 324 cc post void volume 17 cc. Patient's TSH was >150 and free T4 level of 0.30 at 08/29. Decided to give levothyroxine IV 100 mcg x 2 with each dose 4 hours apart and will retake free T4 level and TSH tomorrow morning for any improvements. Will continue to monitor. Denies chest pain, palpation, SOB, abdominal pain, N/V, fevers or chills. Patient's AST level 361, ALT 817, ALP 111, CK 1258, BUN 9, Cr 1.3, eGFR 59. Exam Vital Signs Temp Pulse Resp BP Pulse Ox O2 Del Method 97.4 F 56 L 16 111/73 98 Room Air 08/30/25 11:30 08/30/25 11:30 08/30/25 11:30 08/30/25 11:30 08/30/25 11:30 08/30/25 11:30 Objective Labs 08/30/25 04:54 08/30/25 13:45 Labs: Laboratory Results - last 24 hr 08/30/25 08/30/25 04:54 13:45 WBC 5.2 RBC 3.30 L Hgb 10.4 L Hct 30.4 L MCV 92 MCH 31.5 MCHC 34.2 RDW Std Deviation 43.3 Plt Count 268 D Neut % (Auto) 58 Lymph % (Auto) 32 [place] % (Auto) 7 Eos % (Auto) 2 Baso % (Auto) 1 Neut # (Auto) 3.0 Lymph # (Auto) 1.7 [place] # (Auto) 0.4 Eos # (Auto) 0.1 Baso # (Auto) 0.1 Immature Gran # (Auto) 0.02 H Absolute Nucleated RBC 0.00 Immature Gran % 0 Nucleated RBC % 0 Sodium 140 139 Potassium 4.4 3.9 D Chloride 104 104 Carbon Dioxide 28.2 27.7 Anion Gap 8 7 BUN 8 L 9 Creatinine 1.4 H 1.3 Estim Creat Clear Calc 66.6 71.7 eGFR 54 L 59 L BUN/Creatinine Ratio 6 L 7 L Glucose 71 L 103 Calculated Osmolality 275 276 Calcium 8.5 8.6 Corrected Calcium 8.5 8.6 Phosphorus 3.7 2.8 Magnesium 2.2 Total Bilirubin 0.9 AST 361 H ALT 817 H* Alkaline Phosphatase 111 Total Creatine Kinase 1258 H D Total Protein 6.7 Albumin 4.1 4.2 Globulin 2.6 Albumin/Globulin Ratio 1.6 Quality Measures Quality Measures none Assessment & Plan Assessment Current Active Medications: Generic Name Dose Route Start Last Admin Trade Name Freq PRN Reason Stop Dose Admin Al Hydrox/Mg Hydrox/Simethicone 30 ml 08/27/25 10:26 Mg Hyd/Al Hyd/Linsey (Maalox Reg) Susp 30 Ml Udc PO 09/26/25 10:25 Q6H PRN Indigestion Ibuprofen 400 mg 08/28/25 23:09 08/29/25 20:35 Ibuprofen Tab 400 Mg Tablet PO 09/27/25 23:08 400 mg Q6HR PRN Administration Mild pain 1-6 or Fever>100.4 Levothyroxine Sodium 125 mcg 08/27/25 13:30 08/30/25 05:51 Levothyroxine Sodium 125 Mcg Tablet PO 09/26/25 13:29 125 mcg ACBR LUIZ Administration Ondansetron HCl 4 mg 08/27/25 10:26 Ondansetron Inj 2 Mg/Ml Inj 2 Ml IVP 09/26/25 10:25 Q6H PRN NAUSEA OR VOMITING Protocol Pantoprazole Sodium 40 mg 08/29/25 09:00 08/30/25 08:09 Pantoprazole 40 Mg Tablet PO 09/28/25 08:59 40 mg QDAY LUIZ Administration Plan 25-year-old female with past medical history of hypothyroidism, presented to the hospital on 08/26/2025 due to epigastric pain that began last night at approximately 7pm. Patient has been admitted for management of acute liver injury #Hypothyroidism-induced Rhabdomyolysis #with Secondary transaminitis #Hypothyrodism -Ddx includes Autoimmune hepatitis, Primary biliary cholangitis, Viral hepatitis -Sharp intermittent epigastric pain that has been resolved. Denies muscular pain, acute muscle weakness, or swelling, or brown/tea-colored urine. -No recent surgery, burn, electricity contact, physical restraint, unlikely traumatic rhabdomyolysis -No recent prolonged exercise, seizures or psychotic agitation, No medical history of myopathies, alcoholism, drugs (ex. Statins, illicit substances), recent infections, or alcoholism -Initially, Labs: WBC 8.0, Hgb 10.7, HCT 31.4, sodium 141, potassium 4.1, BUN 12, creatinine 1.4, eGFR 54, AST 491, ALT 366, ALP 74, troponin< 0.002, BNP <20, TSH>150, free T4<0.10. -After 8 hours, Repeat AST: 4310, ALT: 2816, ALP:131 -UA (08/26/2025): Turbid, yellow urine, urine pH 6.5, urine protein 1+, urine blood negative, urine glucose negative, urine RBC 23, urine WBC 36, urine nitrate negative, urine bacteria rare, urine yeast present, urine hCG negative, urine leukocyte esterase positive. -On admission, CK: 2308 -Currently, AST level 361, ALT 817, ALP 111, CK 1258 -Patient's TSH was >150 and free T4 level of 0.30 at 08/29. Plan: -Continue to monitor serum CK and electrolyte levels. -Continue IVF LR IV 100ml/hr -Continue on Levothyroxine 125 mcg PO qd -Levothyroxine IV 100 mcg x 2 with each dose 4 hours apart and will retake free T4 level and TSH tomorrow morning for any improvements. -Pending TSI, TPO antibodies, Thyroglobulin abs, ANCA Scrn, MPO&PR3, Mitochondrial ab -GI following, appreciate recommendations -Strict I and Os #PRINCE, improving -Upon admission, BUN 12 , Cr 1.4 (Baseline unknown), eGFR 54 , BUN/Cr:9 (<15) -Likely ATN, seconday to rhabdomyolysis. -Patient appear to be euvolemic on exam, no edema, lungs clear, mucus membranes dry. -Renal ultrasound (08/30/2025) showed Right kidney 10.1 cm cortex 2.1 cm, Left kidney 9.7 cm renal cortex 1.9 cm, Mild right hydronephrosis, Moderate bilateral renal parenchymal scar formation, No bladder mass or bladder calculi, Bladder prevoid volume 324 cc post void volume 17 cc. Plan: -Will need to follow outpatient wind development director -Avoid nephrotoxins -Renally dose medication #Cholecysitis R/O -Non-radiating epigastric pain that has completely resolved after Diazepam 5mg PO x1 -GallBladder US (08/27/2025): Negative for cholelithiasis, No gallbladder wall edema, Normal common bile -MRCP (08/27/2025): Acute cholecystitis, Acute pancreatitis, no pseudocyst -CT A/P (08/27/2025): Suspicious for acute acalculous cholecystitis as well as mild pancreatitis, Moderate free fluid in the pelvis -HIDA scan (08/29/2025) showed abnormal gallbladder ejection ejection fraction of 29% (normal >35%). Plan: -General Surgery consulted, appreciate recommendations -CTM electrolytes -Daily CBC, CMP #Multiple small benign right ovarian Cysts -Pelvic US (08/27/2025): Multiple small benign right ovarian cysts, the largest 26 x 26 x 23 mm, No free fluid in the cul-de-sac Plan: -Patient needs to follow up outpatient. Health Maintenance: Disposition: Med surg Diet: Regular GI prophylaxis: Maalox DVT prophylaxis: SCD Code: FULL Assessment and plan discussed with my attending physician Dr. Rudy Murray (PGY-1) - Internal medicine resident Attending Provider Attestation/Addendum I attest that I was physically present for the evaluation, physical examination, lab and imaging review of the patient with the residents. I discussed the case with the residents and agree with the findings and plans of care as documented above. At bedside this morning, patient appears comfortable and denies any new complaints. Has not had another episode of abdominal pain, nausea or vomiting. Has been tolerating diet well. Vital signs have been stable.Noted to have creatinine increasing to 1.4 from 1.2 yesterday. Renal ultrasound was obtained, shows possible mild right hydronephrosis without stones or other evidence of obstruction, patient was able to void with postvoid urinary bladder volume of 17 cc. Underwent gallbladder nuclear medicine scan found to have gallbladder activity with ejection fraction of 29%. Curb sided with endocrinology agreed on starting patient on IV levothyroxine, total dose of 200 mcg and obtain follow-up TSH and free T4 level tomorrow morning. We will also continue with levothyroxine 125 daily. Liver function and CK level has been improving. Discussed with general surgery, recommended outpatient follow-up as the ejection fraction is close to normal. Tyrese Grant MD
[2025-08-30 16:00] VITALS: BP 100/69; PULSE 62; RESP 16; TEMP 36.2; O2SAT 97
[2025-08-30] MEDS: SODIUM CHLORIDE 0.9% IV ×2 (16:29→20:27)
[2025-08-30] MEDS: LEVOTHYROXINE 100 MCG IV ×2 (16:29→20:27)
[2025-08-30 16:41] LABS: Free T3 1.1 pg/mL (2.3-4.2)
[2025-08-30 20:00] VITALS: BP 94/62; PULSE 61; RESP 18; TEMP 36.4; O2SAT 99
--- NOTE | 2025-08-30 21:16 | ESPR_ITS ---
Documentation for date of: 08/30/25 Subjective Subjective Interval history: Case discussed with the internal medicine team LFTs continue to drop Total bilirubin 0.9 AST ALT 361 and 817 alk phos 111 CCK HIDA scan ejection fraction at 27% Exam Vital Signs Temp Pulse Resp BP Pulse Ox O2 Del Method 97.5 F 61 18 94/62 99 Room Air 08/30/25 20:00 08/30/25 20:00 08/30/25 20:00 08/30/25 20:00 08/30/25 20:00 08/30/25 20:00 Objective Labs 08/30/25 04:54 08/30/25 13:45 Labs: Laboratory Results - last 24 hr 08/30/25 08/30/25 04:54 13:45 WBC 5.2 RBC 3.30 L Hgb 10.4 L Hct 30.4 L MCV 92 MCH 31.5 MCHC 34.2 RDW Std Deviation 43.3 Plt Count 268 D Neut % (Auto) 58 Lymph % (Auto) 32 [place] % (Auto) 7 Eos % (Auto) 2 Baso % (Auto) 1 Neut # (Auto) 3.0 Lymph # (Auto) 1.7 [place] # (Auto) 0.4 Eos # (Auto) 0.1 Baso # (Auto) 0.1 Immature Gran # (Auto) 0.02 H Absolute Nucleated RBC 0.00 Immature Gran % 0 Nucleated RBC % 0 Sodium 140 139 Potassium 4.4 3.9 D Chloride 104 104 Carbon Dioxide 28.2 27.7 Anion Gap 8 7 BUN 8 L 9 Creatinine 1.4 H 1.3 Estim Creat Clear Calc 66.6 71.7 eGFR 54 L 59 L BUN/Creatinine Ratio 6 L 7 L Glucose 71 L 103 Calculated Osmolality 275 276 Calcium 8.5 8.6 Corrected Calcium 8.5 8.6 Phosphorus 3.7 2.8 Magnesium 2.2 Total Bilirubin 0.9 AST 361 H ALT 817 H* Alkaline Phosphatase 111 Total Creatine Kinase 1258 H D Total Protein 6.7 Albumin 4.1 4.2 Globulin 2.6 Albumin/Globulin Ratio 1.6 Free T3 pg/dL 1.1 L Impressions Impression: Improving LFTs primarily transaminitis due to hypothyroidism partly due to with rhabdomyolysis as well as hypoxic hepatitis Bili dyskinesia mild no recommendation for surgical intervention at this time Continue current management Assessment & Plan A&P Narrative # Primarily transaminitis in the setting of elevated CPK and TSH greater than 150 Hypothyroidism itself can cause transaminase elevation and she is significantly hypothyroid And the picture is complicated by CPK elevation suggestive of rhabdomyolysis that it self can also cause particularly AST elevation and not so much ALT elevation because ALT is liver specific Other differential diagnosis considered would be acute hypoxic hepatitis Her clinical picture is complicated by edema surrounding the pancreas and she has been asymptomatic as well as the severity of the abdominal pain is concerned although she did have atypical chest pain Suggestions Trend the LFTs I see the dosing of levothyroxine and only 125 mcg daily will recommend at least going up to 200 mcg a day Once the hypothyroidism improves AST ALT will start improving IV hydration for the elevated CK Will order complete workup for the liver disease to rule out any evidence of chronic active diabetes which I do suspect she has Very interesting case and I will follow the patient with you Thank you once again for the opportunity to participate in the care of this patient Time Spent With Patient Time: Total time spent is greater than 50% in coordination of care (as documented) at patient's floor/unit and/or counseling patient:
[2025-08-31] VITALS: BP 103/59; PULSE 56; RESP 18; TEMP 36.9; O2SAT 91
[2025-08-31 04:00] VITALS: BP 95/58; PULSE 77; RESP 16; TEMP 36.8; O2SAT 92
[2025-08-31 05:29] LABS: Basophils # (Auto) 0.1 Thou/mm3 (0.0-0.2); Basophils % (Auto) 1 % (0-2.5); Eosinophils # (Auto) 0.1 Thou/mm3 (0.0-0.5); Eosinophils % (Auto) 1 % (0-10); Hematocrit 30.1 % (36.0-46.0); Hemoglobin 10.4 g/dL (12.0-16.0); Immature Granulocytes Auto 0.02 Thou/mm3 (0.00-0.00); Lymphocytes # (Auto) 1.6 Thou/mm3 (1.0-4.8); Lymphocytes % (Auto) 29 % (10-50); Mean Corpuscular HGB Conc 34.6 g/dl (31.0-37.0); Mean Corpuscular Hemoglobin 31.9 pg (25.0-35.0); Mean Corpuscular Volume 92 fL (80-100); Monocytes # (Auto) 0.4 Thou/mm3 (0.0-0.8); Monocytes % (Auto) 7 % (0-12); Neutrophils # (Auto) 3.3 Thou/mm3 (1.8-7.7); Neutrophils % (Auto) 61 % (37-80); Nucleated Red Blood Cell # 0.00 Thou/mm3 (0.00-0.00); Nucleated Red Blood Cell % 0 /100 WBC (0); Platelet Count 247 Thou/mm3 (140-440); RDW Standard Deviation 43.6 fL (36.4-46.3); Red Blood Count 3.26 Miln/mm3 (4.00-5.20); White Blood Count 5.4 Thou/mm3 (3.6-11.0)
[2025-08-31] MEDS: LEVOTHYROXINE SODIUM 125 MCG TABLET PO (05:54)
[2025-08-31 06:05] LABS: Alanine Aminotransferase 662 U/L (10-49); Albumin, Serum 4.3 gm/dL (3.5-5.0); Albumin/Globulin Ratio 1.7 (1.2-2.2); Alkaline Phosphatase 107 U/L (46-116); Anion Gap 9 (7-16); Aspartate Amino Transferase 244 U/L (0-34); BUN/Creatinine Ratio 8 Ratio (12-20); Bilirubin,Total 0.7 mg/dL (0.3-1.2); Blood Urea Nitrogen 9 mg/dL (9-23); Calcium 9.0 mg/dL (8.3-10.6); Calcium (Corrected) 9.0 mg/dL (8.5-10.1); Carbon Dioxide 27.7 mMol/L (20.0-31.0); Chloride 104 mMol/L (98-107); Creatinine (Component) 1.2 mg/dL (0.6-1.3); Estimated Creatinine Clearance 77.7 mL/min (>60); Free T4 (Free Thyroxine) 0.69 ng/dL (0.89-1.76); Globulin 2.6 gm/dL (2.3-3.5); Glucose 103 mg/dL (74-106); Magnesium 2.3 mg/dL (1.6-2.6); Osmolality,Calculated 279 (275-295); Phosphorous 3.7 mg/dL (2.4-5.1); Potassium 4.3 mMol/L (3.4-5.1); Sodium 141 mMol/L (136-145); Thyroid Stimulating Hormone > 150.00 uIU/mL (0.55-4.78); Total Protein 6.9 gm/dL (5.7-8.2); eGFR > 60 See Note
[2025-08-31 07:16] VITALS: BP 112/77; PULSE 65; RESP 16; TEMP 36.3; O2SAT 100
--- NOTE | 2025-08-31 08:52 | PC.SS ---
Follow up note: Pt will dc home today.
[2025-08-31] MEDS: PANTOPRAZOLE 40 MG TABLET PO (09:08)
--- NOTE | 2025-08-31 11:22 | PD.RESDS ---
Planned Discharge Date 08/31/25 DS: Providers Provider Date of admission: 08/27/25 10:26 Primary care physician: Physician No Primary/Family Admitting Provider: Tyrese Grant MD Attending Provider on Admission: Tyrese Grant MD Consults: 08/27/25 09:11 Consult to Gastroenterology Stat Comment: Consulting Provider: Humza Barraza 08/27/25 10:05 Consult to General Surgery Routine Comment: Consulting Provider: Peggy Allen Attending Provider on DC: Mana Murray DO Discharging Provider: Mana Murray DO DS: Diagnosis Problem List Completed Was Problem List Reviewed/Reconciled?: Yes Hospital Course Hospital Course Hospital course: Summary: 25-year-old female with past medical history of hypothyroidism, presented to the hospital on 08/26/2025 due to epigastric pain that began at night of 08/25 at approximately 7pm. Patient was admitted for severe hypothyroidism and rhabdomyolysis. Patient was given IVF levothyroxine p.o. and levothyroxine IV. Patient's LFT values has been stabilized, CK stabilized, and free T4. Patient was discharged with instructions to follow-up with PCP, instructor apparel manufacture, nephorlogist, General surgyer and ACCOUNTS PAYABLE ADMINISTRATOR. Hospital Course: On admission AST: 4310, ALT: 2816, ALP:131, CK: 2308, TSH: >150 and free T4 level of 0.30, indicating patient have a severe hypothyroidism that has caused rhabdomyolysis. Patient was treated with IV fluids LR IV 100 mL/h and levothyroxine 125 mcg p.o. daily. However, patient's T4 was still significantly low so patient was given levothyroxine IV 100 mcg x 2 with each dose 4 hours apart. LFT values has been stabilized (AST:244, ALT:662, ALP:107) and CK:1258. On the day of discharge patient's TSH was >150 and Free T4: 0.69, which was still low. Before discharge, patient was given IV levothyroxine [address] abdomen pelvis showed possible cholecystitis however gallbladder ultrasound showed negative cholelithiasis and no gallbladder wall edema. HIDA scan showed gallbladder ejection fraction of 29% (normal>35%), however it was likely due to patient's severe hypothyroidism, because the patient remained largely asymptomatic, afebrile, normal WBC count. There was also incidental finding on pelvic ultrasound that showed multiple small benign right ovarian cysts. Renal US showed Mild right hydronephrosis and Moderate bilateral renal parenchymal scar formation. Patient was instructed to follow-up with PCP, instructor apparel manufacture, nephorlogist, General surgyer and ACCOUNTS PAYABLE ADMINISTRATOR. Instructions: Please take levothyroxine 125mcg tablet by mouth once a day 30 minutes before eating or taking any other medication in the morning Follow-up with your PCP within 1 week of discharge or follow-up at the [facility] [address] [place] [address] Ask your PCP to follow-up with your kidney function to rule out chronic kidney disease and right-sided hydronephrosis Ask your PCP to monitor liver function and follow-up on special tests ordered for elevated liver enzymes (plasma copper, LYNN, ANCA, Anti-Proteinase 3, Anti-Myeloperoxidase, Anti-Mitochondrial Ab, Thyroglobulin Ab, Thyroid peroxidase Ab) Follow-up with Dr. Allen (general surgery) in two weeks to follow-up on abdominal pain and possible need for surgery Follow-up with OB-MARKETING PROGRAMS SPECIALIST for uterine cysts If your symptoms worsen or if you develop new chest pain, shortness of breath, severe abdominal pain or bleeding - please come back to the ED immediately. Stable to discharge to HOME #Hypothyroidism-induced Rhabdomyolysis #with Secondary transaminitis #Hypothyrodism #PRINCE, improving #Cholecysitis R/O #Multiple small benign right ovarian Cysts Assessment and plan discussed with my attending physician Dr. Rudy Murray (PGY-1) - Internal medicine resident Time Spent with Patient Time attestation: Total time spent providing and/or coordinating discharge services: 34 min Time spent: Greater than 30 minutes Exam Vital Signs Temp Pulse Resp BP Pulse Ox O2 Del Method 97.4 F 65 16 112/77 100 Room Air 08/31/25 07:16 08/31/25 07:16 08/31/25 07:16 08/31/25 07:16 08/31/25 07:16 08/31/25 07:16 Narrative Exam General: No acute distress, well nourished, AAO x3 Eye: PERRL, EOMI, normal conjunctiva, no scleral icterus HENT: Normocephalic, atraumatic, hearing intact to conversation at normal volume, moist oral mucosa Neck: Supple, non-tender, no JVD, no lymphadenopathy Lungs: Non-labored respirations, symmetric chest rise, Clear to auscultate bilaterally, No wheezing, rhonchi, crackles Heart: Peripheral pulses intact bilaterally, Regular Rate and Rhythm. Abdomen: Soft, non-tender, non-distended, no palpable masses Musculoskeletal: Normal range of motion and strength, No cyanosis or edema, No visible joint swelling Skin: Skin is warm, dry, no rashes or lesions. Psychiatric: Cooperative, appropriate mood and affect, Awake and alert, not agitated Neuro: Cranial nerves II-XII grossly intact. Strength 5/5 throughout. Sensations intact to light touch. Discharge Plan Plan Patient Disposition: HOME (Self Care) Care Plan Goals: Please take levothyroxine 125mcg tablet by mouth once a day 30 minutes before eating or taking any other medication in the morning Follow-up with your PCP within 1 week of discharge or follow-up at the [address] [place] [address] Ask your PCP to follow-up with your kidney function to rule out chronic kidney disease and right-sided hydronephrosis Ask your PCP to monitor liver function and follow-up on special tests ordered for elevated liver enzymes (plasma copper, LYNN, ANCA, Anti-Proteinase 3, Anti-Myeloperoxidase, Anti-Mitochondrial Ab, Thyroglobulin Ab, Thyroid peroxidase Ab) Follow-up with Dr. Allen (general surgery) in two weeks to follow-up on abdominal pain and possible need for surgery Follow-up with OB-MARKETING PROGRAMS SPECIALIST for uterine cysts If your symptoms worsen or if you develop new chest pain, shortness of breath, severe abdominal pain or bleeding - please come back to the ED immediately. Prescriptions/Referrals Prescriptions/Med Rec: New levothyroxine 125 mcg Tablet 125 mcg PO ACBR 30 Days Qty: 30 1RF Referrals: No Primary/Family,Physician [Primary Care Provider] Peggy Allen MD [Physician, General Surgery] Patient/Caregiver Discharge Instructions Education Materials: The Role of the Thyroid Gland, Treating Thyroid Problems Print Language: Khmer Stand Alone Forms: [facility] Award Info., Patient Portal Info Letter Discharge Order Discharge Orders: Discharge (Routine); Ordered 08/31/25 Ordered By: Cesar Lorenzana Quality Discharge Quality Measures VTE prophylaxis Attestestation MD Attestation I attest that I was physically present for the evaluation, physical examination, lab and imaging review of the patient with the residents. I discussed the case with the residents and agree with the findings and plans of care as documented above. Tyrese Grant MD
[2025-08-31 11:28] VITALS: BP 108/71; PULSE 68; RESP 15; TEMP 36.2; O2SAT 99
[2025-08-31] MEDS: LEVOTHYROXINE 200 MCG IV (12:33)
[2025-08-31] MEDS: SODIUM CHLORIDE 0.9% IV (12:33)
--- NOTE | 2025-08-31 22:07 | PD.IMPROG ---
Documentation for date of: 08/31/25 Subjective Subjective Interval history: Late entry for the note Case discussed with internal medicine team AST down to 244 ALT down to 662 Downward trending LFTs Patient can be discharged to be followed by the PCP Exam Vital Signs Temp Pulse Resp BP Pulse Ox O2 Del Method 97.1 F 68 15 108/71 99 Room Air 08/31/25 11:28 08/31/25 11:28 08/31/25 11:28 08/31/25 11:28 08/31/25 11:28 08/31/25 11:28 Objective Labs 08/31/25 04:31 08/31/25 04:31 Labs: Laboratory Results - last 24 hr 08/31/25 04:31 WBC 5.4 RBC 3.26 L Hgb 10.4 L Hct 30.1 L MCV 92 MCH 31.9 MCHC 34.6 RDW Std Deviation 43.6 Plt Count 247 Neut % (Auto) 61 Lymph % (Auto) 29 [place] % (Auto) 7 Eos % (Auto) 1 Baso % (Auto) 1 Neut # (Auto) 3.3 Lymph # (Auto) 1.6 [place] # (Auto) 0.4 Eos # (Auto) 0.1 Baso # (Auto) 0.1 Immature Gran # (Auto) 0.02 H Absolute Nucleated RBC 0.00 Immature Gran % 0 Nucleated RBC % 0 Sodium 141 Potassium 4.3 Chloride 104 Carbon Dioxide 27.7 Anion Gap 9 BUN 9 Creatinine 1.2 Estim Creat Clear Calc 77.7 eGFR > 60 BUN/Creatinine Ratio 8 L Glucose 103 Calculated Osmolality 279 Calcium 9.0 Corrected Calcium 9.0 Phosphorus 3.7 Magnesium 2.3 Total Bilirubin 0.7 AST 244 H ALT 662 H* Alkaline Phosphatase 107 Total Protein 6.9 Albumin 4.3 Globulin 2.6 Albumin/Globulin Ratio 1.7 TSH > 150.00 H* Free T4 0.69 L Impressions Impression: Downtrending LFTs due to hypothyroidism rhabdomyolysis and possibly hypoxic hepatitis Okay to discharge patient to be followed by the PCP Assessment & Plan A&P Narrative # Primarily transaminitis in the setting of elevated CPK and TSH greater than 150 Hypothyroidism itself can cause transaminase elevation and she is significantly hypothyroid And the picture is complicated by CPK elevation suggestive of rhabdomyolysis that it self can also cause particularly AST elevation and not so much ALT elevation because ALT is liver specific Other differential diagnosis considered would be acute hypoxic hepatitis Her clinical picture is complicated by edema surrounding the pancreas and she has been asymptomatic as well as the severity of the abdominal pain is concerned although she did have atypical chest pain Suggestions Trend the LFTs I see the dosing of levothyroxine and only 125 mcg daily will recommend at least going up to 200 mcg a day Once the hypothyroidism improves AST ALT will start improving IV hydration for the elevated CK Will order complete workup for the liver disease to rule out any evidence of chronic active diabetes which I do suspect she has Very interesting case and I will follow the patient with you Thank you once again for the opportunity to participate in the care of this patient Time Spent With Patient Time: Total time spent is greater than 50% in coordination of care (as documented) at patient's floor/unit and/or counseling patient:
[2025-09-01 06:43] LABS: PTT-LA Screen 33 seconds (< OR = 40); dRVVT Screen 32 seconds (< OR = 45)
[2025-09-01 06:43] LABS: Thyroid Peroxidase Antibodies* >900 IU/mL (<9)
[2025-09-02 07:05] LABS: ANA Pattern NUCLEAR, SPECKLED; ANA Screen, IFA POSITIVE (NEGATIVE); ANA Titer 1:320 titer
[2025-09-02 07:05] LABS: Mitochondrial Ab NEGATIVE (NEGATIVE)
[2025-09-02 07:08] LABS: TSI, Thyroid Stimulating Ig* 93 % baseline (<140)
[2025-09-05 06:29] LABS: ANA Pattern NUCLEAR, SPECKLED; ANA Screen, IFA POSITIVE (NEGATIVE); ANA Titer 1:320 titer; Alpha-1-Antitrypsin* 120 mg/dL (83-199); Ceruloplasmin* 23 mg/dL (14-48); Copper* 97 mcg/dL (70-175); Mitochondrial Ab NEGATIVE (NEGATIVE)
[2025-09-07 06:30] LABS: Myeloperoxidase Ab <1.0 AI (<1.0); Proteinase-3 Ab <1.0 AI (<1.0); Thyroglobulin Antibodies* 1 IU/mL (< OR = 1)
== END 2025-08-31 13:56 | disposition home or self-care (01) | DRG 441 ==
LOC: SERX 08-27 06:06 → SERHOLD 08-27 10:46 → S3NX 08-27 12:10
PROVIDERS: Emergency Medicine; Physician Assistant; Specialist; Student in an Organized Health Care Education/Training Program; Admitting Provider Student in an Organized Health Care Education/Training Program; Emergency Provider Emergency Medicine; Visit Provider Student in an Organized Health Care Education/Training Program
DX: K75.9 Inflammatory liver disease, unspecified (principal); K85.90 Acute pancreatitis without necrosis or infection, unspecified; N17.0 Acute kidney failure with tubular necrosis; M62.82 Rhabdomyolysis; K80.42 Calculus of bile duct with acute cholecystitis without obstruction; N13.30 Unspecified hydronephrosis; E03.9 Hypothyroidism, unspecified; F41.9 Anxiety disorder, unspecified; N83.201 Unspecified ovarian cyst, right side; Z79.890 Hormone replacement therapy; Z88.8 Allergy status to other drugs, medicaments and biological substances; Z88.0 Allergy status to penicillin
CPT/HCPCS: 36415; 71045; 74177; 74181; 76705; 76770; 76856; 78227; 80053; 80061; 80069; 80074; 80076; 80307; 80320; 80329; 81001; 81025; 82103; 82105; 82390; 82525; 82550; 82728; 83540; 83550; 83690; 83735; 83880; 84100; 84439; 84443; 84445; 84481; 84484; 85025; 85379; 85610; 85613; 85730; 86021; 86036; 86038; 86039; 86255; 86308; 86376; 86800; 87040; 93005; 96361; 96365; 99285; A4216; A4649; A9537; J2543; J2805; J3475; J7030; J7120; Q9967; A9270; G0480